=== PATIENT | male | born 1945 | race Caucasian/White ===

== ENCOUNTER 2021-05-21 08:04 | Day surgery (SDC) | payer MEDICARE, SELFPAY ==
[2021-04-25 10:00] VITALS: BMI 29.6
--- NOTE | 2021-04-25 11:55 | RAD_ITS ---
STUDY: X-RAY CHEST REASON FOR EXAM: Male, 75 years old. Abnormal stress test. Dyspnea on exertion. TECHNIQUE: PA and lateral views of the chest. COMPARISON: None. FINDINGS: The lungs are clear and expanded. There is no demonstrated pleural abnormality. Normal size heart. Normal mediastinum and anne marie. Normal visualized pulmonary arteries. There is atherosclerotic calcification of the aortic arch with tortuosity. There are mild degenerative changes of the visualized thoracic spine. Normal visualized ribs, clavicles, and shoulders. There is no demonstrated abnormality of the visualized soft tissue structures of the upper abdomen. RAD/Chest PA and Lateral IMPRESSION: No acute abnormality is seen. Electronically Signed: Clifford Cruz MD at 12:37 EDT , Service support ,
[2021-04-25 14:34] LABS: Absolute Lymphocyte Count 4.64 X10^3/uL (0.83-4.51); Basophil# 0.03 X10^3/uL; Basophil% 0.3 % (0-1); Eosinophil# 0.16 X10^3/uL; Eosinophils% 1.7 % (0-5); Hematocrit 41.5 % (40-54); Hemoglobin 13.5 g/dL (13.0-16.5); Lymphocyte # 4.64 X10^3/ul (0.83-4.51); Lymphocyte % 49.2 % (19-41); Mean Corp Hgb Conc 32.5 g/dL (32-36); Mean Corpuscular Hgb 29.5 pg (27.0-32.0); Mean Corpuscular Volume 90.8 fL (80-94); Mean Platelet Vol. 10.4 fl (6.2-12.0); Monocyte# 0.61 X10^3/uL; Monocyte% 6.5 % (0-10); NRBC Flagged by Analyzer 0 % (0-5); Neutrophil # 3.98 X10^3/uL (2.7-7.7); Neutrophil % 42.1 % (47-70); POSITIVE MORPHOLOGY YES; Platelet Count 182 K/mm3 (150-450); RBC Distribution Width CV 14.3 % (11.6-14.6); RBC Distribution Width SD 47.9 fl (35.1-43.9); Red Blood Count 4.57 M/mm3 (4.6-6.2); White Blood Count 9.4 K/mm3 (4.4-11.0)
[2021-04-25 14:35] LABS: Differential Indicated SCAN CRITERIA MET
[2021-04-25 14:43] LABS: Prothrombin Time (Protime)PT. 12.8 SECONDS (11.7-14.9)
[2021-04-25 14:44] LABS: Partial Thromboplast Time 31.8 Seconds (24.1-36.2)
[2021-04-25 14:50] LABS: Anion Gap 5 (5-15); BUN 18 mg/dL (7-18); BUN/Creat Ratio 18.7 RATIO (10-20); Calcium,Total 9.1 mg/dL (8.5-10.1); Chloride 105 mmol/L (98-107); Creatinine, Serum 0.96 mg/dL (0.70-1.30); EST Glomerular Filtration Rate 81 mL/min (>60); Est Glom Filt Rate - Afr Amer 98 mL/min (>60); Glucose 83 mg/dL (74-106); Potassium 3.9 mmol/L (3.5-5.1); Sodium Level 141 mmol/L (136-145)
[2021-04-25 15:01] LABS: Platelet Estimate ADEQUATE (ADEQ); Red Cell Morphology NORM C+C NORMAL (NORM C&C)
[2021-05-20 10:03] VITALS: BMI 29.5
--- NOTE | 2021-05-20 17:44 | PCM.HP.BLA ---
History and Physical Date of Admission: 05/21/21 [facility] [address] [place], [place] [id number] OFFICE VISITDate of Service: 04/25/21 MR#:[id number]:[id number]: SAMM MITCHELL LRep #:[id number] Provider:Dr. Julian Cruz, CHUYge/Sex: 75/M Location:[facility]:Signed HPI HPI History of Present Illness Surgical H&P: Yes Details: This is a 75-year-old white male who presents for outpatient cardiovascular consultation based upon concerns of shortness of breath/dyspnea on exertion and an abnormal stress nuclear imaging study performed at [facility] in [place], [place]. He states while spending time in [place] he was evaluated by a primary care physician. He was told based upon his knowledge of a cardiac murmur that he should be evaluated by a event representative. He was evaluated by a cardiovascular team which subsequently led, based on concerns of shortness of breath and dyspnea with exertion, to an exercise tolerance test/nuclear imaging study. He was told it was abnormal. He was offered further evaluation with additional noninvasive and invasive studies. He elected to return to [place] for continued evaluation and care. Based upon medical records obtained from the aforementioned healthcare system in [place] there comments that his cardiac work-up demonstrated a transthoracic echocardiogram with normal LV systolic function with an LVEF of 55 to 60% with no significant valvular heart disease reported. He had a pharmacologic stress nuclear imaging study that suggested mild inferolateral ischemia although diaphragmatic attenuation cannot be excluded. He states his medications were adjusted to assist with his hypertension. He notes at home his blood pressure is always better controlled than when he presents to a physician's office. He does state that he can get short of breath and dyspneic with going up an incline or upstairs. However he states he can work outside doing other activities and not necessarily feel the same way. He denies any ongoing chest discomfort with his other symptoms. He has had no issues of orthopnea or PND or peripheral pitting edema. There has been no near syncope or syncope. 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 After rehydrating himself he states he felt much better. He has not had any additional similar type symptoms. He had an ECG in the office today. He was noted to be in sinus bradycardia. He had a leftward axis. He had no acute ECG changes. He did have lipid labs performed on 08-23-2020 by his primary care physician group. According to the report his cholesterol was 171 with an LDL of 103 and an HDL of 53. His triglycerides were 78. Intake Vital Signs 04/25/21 10:00 Height 5 ft 10 in Weight: 206 lb 9 oz BMI 29.6 BP 190/102 H Blood Pressure Location Lt brachial Position Sitting Respiration 18 Pulse 60 Pulse Source Auscultation Intake Visit Reasons: Abn Stress/Self ref. Angular Developer Required: No Accompanied by: Allergies No Known Allergies Allergy (Unverified 04/25/21 10:01) Medications ascorbic acid (vitamin C) 500 mg tablet 500 mg PO DAILY 04/23/21 [History Confirmed 04/25/21] aspirin 81 mg tablet,delayed release 81 mg PO DAILY 04/23/21 [History Confirmed 04/25/21] hydrochlorothiazide 25 mg tablet 25 mg PO DAILY 04/23/21 [History Confirmed 04/25/21] lovastatin 40 mg tablet 40 mg PO QPM 04/23/21 [History Confirmed 04/25/21] rsvphhxa-cjo-spucy acid 400 mcg-coQ10 250 mcg-lycop 375 mcg-lut tablet 1 tab PO DAILY tab 04/23/21 [History Confirmed 04/25/21] olmesartan 40 mg tablet 40 mg PO DAILY 04/23/21 [History Confirmed 04/25/21] sulfacetamide sodium 10 % eye drops 1 drp OPHTHALMIC (EYE) Q3H PRN 04/23/21 [History Confirmed 04/25/21] clopidogrel 75 mg tablet 75 mg PO DAILY #30 tab 04/25/21 [Rx Confirmed 04/25/21] PFSH Medical History (Updated 04/25/21 @ 11:[address] Julian Cruz MD) Cardiac murmur Diverticulosis Essential hypertension Pure hypercholesterolemia Renal cyst Surgical History History of arthroplasty of right knee History of basal cell carcinoma excision History of foot surgery History of hernia repair History of prostate biopsy Family History Mother Hypertension Cardiac murmur Father CVA (cerebral vascular accident) Sister Cardiac murmur Sister Cardiac murmur Social History Smoking Status: Former smoker alcohol intake: current details: Rare substance use type: does not use caffeine: Yes Type: tea Number of servings: 1 ROS Const Const: Negative for fatigue, weakness, frequent falls, excessive sweating, weight gain or weight loss Eyes Eyes: Negative for transient loss of vision, blurry vision or change in vision ENT ENT: Negative for dizziness or balance problems Cardio Chest Pain: No Palpitations: Yes (occasional) feels like its: skipping Edema: None Muscle aches with walking: None Resp Respiratory: Negative for SOB with activity or SOB at rest GI GI: Negative vomiting or vomiting blood/hematemesis : Negative for hematuria Musc Musc: Negative for muscle aches/ myalgia, muscle weakness, joint pain or balance problems Skin Skin: Negative non-healing lesions or rash Neuro Neuro: Negative for dizziness, lightheadedness, orthostatic symptoms, frequent falls, weakness or blurry vision David Hematologic/Lymphatic: Negative for easy bleeding Endo Endo: Negative for fatigue or excessive sweating Psych Psych: Negative for anxiety or depression Allergy Allergy/Immunology: Negative for hives and Negative for rash Cardiology Exam Const Appearance: cooperative, healthy appearing, comfortable, no acute distress, well developed and well groomed Nutritional Appearance: overweight Orientation: alert, awake and oriented x3 Head Head: normal to inspection, normocephalic and atraumatic Ears: hearing grossly normal bilaterally Nose: external nose normal Face and Sinus: face symmetric Eyes Eyelids: eyelids normal Conjunctivae: conjunctivae normal Pupils: PERRL EOM: EOM intact bilaterally Neck Neck: normal visual inspection and full ROM Carotids: normal carotid upstroke Chest Chest inspection: normal inspection of the chest, symmetric chest movement and normal respiratory effort Auscultation: Bilateral: Clear to Auscultation Cardio Palpation: normal PMI Rate: bradycardic Rhythm: regular rhythm Heart sounds: S1 normal, S2 normal and murmur Murmur: Grade 2/6, soft, mid systolic and apex GI GI: normal to inspection, soft and bowel sounds present Neuro General: patient alert, patient awake, patient oriented x3 and moves all extremities Skin Skin: no rashes or lesions noted Extremities Pulses: Normal: Right Radial Pulse and Left Radial Pulse Lower Extremity Edema: None: Bilateral Psych Psychological: normal affect Assessment and Plan Assessment and Plan (1) Dyspnea: Status: Acute Qualifiers: Dyspnea type: dyspnea on exertion Qualified Code(s): R06.00 - Dyspnea, unspecified Orders: Orders: Left Heart Cath/COR/LV Percut Today Basic Metabolic Profile (BMP) Today Partial Thromboplast Time Today Prothrombin Time w/INR Today CBC W/Diff, Automated Today Chest PA and Lateral Today Plan - Dr. Julian Cruz MD: He does have dyspnea on exertion. He appears to somewhat downplay it . He is undergone evaluation as noted above. This is led to findings of an abnormal pharmacologic stress nuclear imaging study requiring further clarification as to whether or not he truly has underlying CAD or whether its a false positive study. At the present time his case was discussed with him. Additional noninvasive and invasive valuation was discussed with respect to cardiac CTA versus cardiac catheterization. The procedure and risks were discussed with him. Status post a discussion both he and his opted to proceed with further definitive evaluation with diagnostic cardiac catheterization. (2) Abnormal stress test: Status: Acute Orders: Orders: 12 Lead EKG performed by BMS Today Left Heart Cath/COR/LV Percut Today Basic Metabolic Profile (BMP) Today Partial Thromboplast Time Today Prothrombin Time w/INR Today CBC W/Diff, Automated Today Chest PA and Lateral Today Plan - Dr. Julian Cruz MD: His stress test is as noted above. Again a discussion was held with him with respect to additional evaluation and care. At the present time he will continue medical management and proceed with additional evaluation as noted. (3) Pure hypercholesterolemia: Status: Acute Orders: Orders: 12 Lead EKG performed by BMS Today Left Heart Cath/COR/LV Percut Today Basic Metabolic Profile (BMP) Today Partial Thromboplast Time Today Prothrombin Time w/INR Today CBC W/Diff, Automated Today Chest PA and Lateral Today Plan - Dr. Julian Cruz MD: He will continue lipid-lowering therapy. (4) Essential hypertension: Status: Acute Orders: Orders: 12 Lead EKG performed by BMS Today Left Heart Cath/COR/LV Percut Today Basic Metabolic Profile (BMP) Today Partial Thromboplast Time Today Prothrombin Time w/INR Today CBC W/Diff, Automated Today Chest PA and Lateral Today Plan - Dr. Julian Cruz MD: He was asked to monitor his blood pressure at home and report his blood pressure recordings to the office. Depending upon his home blood pressure readings he may or may not need further adjustment of his antihypertensive regimen. (5) Cardiac murmur: Status: Acute Plan - Dr. Julian Cruz MD: He does have a cardiac murmur. His echocardiogram performed in [place] did not suggest any hemodynamically significant valvular heart disease. Plan Details Other Medications: New: clopidogrel (Plavix) 75 mg PO DAILY 30 tabs 1RF Additional Comments: Thank you for allowing me to participate in the care of your patient. Please don't hesitate to call if any issues arise. This note was generated using a voice recognition system and there may be incorrect words, spelling or punctuation that were not noted when reviewing the office note prior to saving. Follow Up: 3 Months (with PFM) COVID (Procedure Consent) Procedure Criteria Procedure Criteria: Yes Elective The surgeon/proceduralist and patient have discussed in detail the risk of exposure to and/or potential harm posed by the COVID-19 virus with having a surgery/procedure at this time versus the risk of delaying the surgery/procedure. It is not possible to know either the risk of delaying the surgery or procedure or chance of getting an infection with perfect accuracy, but a joint decision was made between the patient and the surgeon/proceduralist to proceed at this time with the scheduled surgery/procedure as indicated on the consent form. Coding Level of Care Code Off vis,new,level 5 Diagnoses Dyspnea R06.00 Dyspnea type: dyspnea on exertion Abnormal stress test R94.39 Pure hypercholesterolemia E78.00 Essential hypertension I10 Cardiac murmur R01.1 Coding Level of Care Code Off vis,new,level 5 Diagnoses Dyspnea R06.00 Dyspnea type: dyspnea on exertion Abnormal stress test R94.39 Pure hypercholesterolemia E78.00 Essential hypertension I10 Cardiac murmur R01.1 Supplemental Info Supplemental Information Labs: No Data to Display Diagnostics: Electrocardiogram Pulmonary: No Data to Display 04/25/21 1113<Electronically signed by Julian Cruz MD>Date Julian Cruz MD Cosigner Signature:Date (if applicable) CC: ~ I have re-examined the patient. There are no clinical changes since date of exam.
[2021-05-21] VITALS (15 sets, daily range): BP systolic 137–168; BP diastolic 72–89; PULSE 49–68; RESP 12–16; TEMP 36.7–37; O2SAT 93–96
--- NOTE | 2021-05-21 10:30 | EKG12_ITS ---
Test Reason : AM EKG Blood Pressure : / mmHG Vent. Rate : 067 BPM Atrial Rate : 067 BPM P-R Int : 174 ms QRS Dur : 088 ms QT Int : 426 ms P-R-T Axes : 038 -29 019 degrees QTc Int : 450 ms Normal sinus rhythm Normal ECG When compared with ECG of 21-MAY-2021 11:40, MANUAL COMPARISON REQUIRED, DATA IS UNCONFIRMED Confirmed by YG NANCE, LEONEL ([id number]), state editor SHAINA HUMPHREY ([id number]) on 05/22/2021 1:27:48 PM Referred By: Julian Cruz Confirmed By:LEONEL RONQUILLO MD
[2021-05-21] MEDS: 0.9% Normal Saline 1,000 ML 70 ML IV (11:08)
--- NOTE | 2021-05-21 11:09 | CL.D_ITS ---
Patient Name: SAMM MITCHELL Study Date: 05/21/2021 Performing: Julian Cruz MD Ht: 70 inches 178 cm : 1945 Wt: 205.3 lbs 93 kg Age: 75 Gender: male BSA: 2.11 PROCEDURE(S) PERFORMED CE13-WEI/COR/LV [id number] W OR WO PTCA, SINGLE CORONARY ARTERY CLINICAL PROFILE AND INDICATIONS Indications: Suspected CAD Heart Failure: None Stress/Imaging Date: 01/02/2021tress Test with SPECT MPI: Positive Intermediate Risk Angina Classification Anginal Classification w/in 2 Weeks: CCS III CAD Presentations: Stable angina. CONCLUSIONS Elevated Left Ventricular End Diastolic Pressure Normal LV size, wall motion,and systolic function LVEF: by LV gram 55 % [place] Multivessel CAD RECOMMENDATIONS Risk factor modification Medical therapy Referred for immediate PCI DESCRIPTION OF PROCEDURE The patient arrived to the procedure lab. The risks and benefits of the procedure as well as a full d escription of our services here and current unavailability of surgical backup were fully explained to the patient and/or their significant other prior to the catheterization. The Timeout was completed, verifying the correct patient and procedure. The patient's procedural site was prepped and draped in the usual fashion. Local anesthetic was given subcutaneously to right radial region with Lidocaine 2% . Using a modified Seldinger technique, arterial access was obtained via the right radial artery, a 6 Fr sheath was inserted. Right Coronary Artery selective angiography was then performed in multiple v iews using a 5 Fr. 4.0 [place] catheter. Left Coronary Artery selective angiography was performed in mu ltiple views using a 5 Fr. 4.0 [place] catheter. Left Ventriculography was performed in MYERS projection using a 5 Fr. Pigtail catheter. LV to AO pullback pressures were then recorded.The arterial sheath was pulled and a TR Band was applied for hemostasis CORONARY ANGIOGRAPHY DOMINANCE: Co- Dominant LEFT HEART ASSESSMENT Left Ventricular Ejection Fraction: by LV Gram 55 % Normal LV wall motion Elevated Left Ventricular End Diastolic Pressure LVEDP: 20 mmHg LEFT MAIN: Angiographically normal LEFT ANTERIOR DESCENDING ARTERY: Mild luminal irregularities PROX LAD: Mild calcification CIRCUMFLEX ARTERY: Mild luminal irregularities MID CIRC: 90 % Stenosis RAMUS: Mild luminal irregularities RIGHT CORONARY ARTERY: Mild luminal irregularities AORTIC ROOT: Angiographically normal COMPLICATIONS No Complications PROCEDURE MEDICATIONS Fentanyl 50 mcg IV Versed 1 mg IV Oxygen: 2 L/min via nasal cannula Heparin given IA 05/21/2021 09:39:03 Heparin 6000 unit(s) IV 05/21/2021 09:56:52 Verapamil 2.5mg, Ntg 100mcgs, 3000 units of Heparin given IA 05/21/2021 09:39:03 SUMMARY OF HEMODYNAMIC DATA Time AIR REST ECG 08:30:29 ECG 09:19:21 AO 151/80 (109) SA 09:42:29 LV 164/-10, 09:50:03 LV 162/-13, 20 09:50:09 LV 161/-12, 09:51:05 LVp 160/-14, 20 09:51:11 AOp 156/66 (101) 09:51:16 AO 157/67 (103) 09:51:17 Signed By Julian Cruz MD On 06/18/2021 12:29:01 PM Julian Cruz MD
--- NOTE | 2021-05-21 12:12 | CL.I_ITS ---
Patient Name: SAMM MITCHELL Study Date: 05/21/2021 Performing: Toy Miller MD Ht: 70.08 inches 178 cm : 1945 Wt: 205.03 lbs 93 kg Age: 75 Gender: male BSA: 2.11 PROCEDURE(S) PERFORMED [id number] W OR WO PTCA, SINGLE CORONARY ARTERY CLINICAL PROFILE AND CO-MORBIDITIES Indications: Suspected CAD Heart Failure: None Stress/Imaging Date: 01/02/2021 Stress Test with SPECT MPI: Positive Intermediate Risk Angina Classification Anginal Classification w/in 2 Weeks: CCS III CAD Presentations: Stable angina. CONCLUSIONS Successful EBONY to mLCX RECOMMENDATIONS DESCRIPTION OF PROCEDURE The patient arrived to the procedure lab. The risks and benefits of the procedure as well as a full d escription of our services here and current unavailability of surgical backup were fully explained to the patient and/or their significant other prior to the catheterization. The Timeout was completed, verifying the correct patient and procedure. The patient's procedural site was prepped and draped in the usual fashion. Local anesthetic was given subcutaneously to right radial region with Lidocaine 2% Using a modified Seldinger technique,arterial access was obtained via the right radial artery, a 6Fr sheath was inserted. Right Coronary Artery selective angiography was then performed in multiple view s using a 5 Fr. 4.0 [place] catheter. Left Coronary Artery selective angiography was performed in multi ple views using a 5 Fr. 4.0 [place] catheter. Left Ventriculography was performed in MYERS projection usi ng a 5 Fr. Pigtail catheter. LV to AO pullback pressures were then recorded.The images were reviewed and options discussed. A decision was then made to proceed with an Intervention, IVUS o r other adjunct procedure. XB 3.0 Guide catheter was inserted and engaged into the LCA. Angiogram performed pre balloon dila tation. BMW Guide wire was advanced to the Circumflex. 2.5 x 8 Emerge Balloon catheter was advanced a cross lesion in the circumflex, mid. PTCA balloon inflated at 6 atms for 9 secs. PTCA balloon inflate d at 8 atms for 15 secs. 3.0 x 9 Orsiro Drug Eluting stent was advanced across the lesion in the circ umflex, mid. 3.0 x 8 NC Emerge Balloon catheter was inserted post stent. Angiogram performed post harjeet nt deployment. The arterial sheath was pulled and a TR Band was applied for hemostasis INTERVENTION INFORMATION LESION SITE: Circumflex (Mid) Lesion Complexity: High/C, chronic total occlusion: No, lesion at bifurcation: Yes, thrombus present: No, lesion length: 8 mm, culprit lesion: Yes, Previously treated lesion: No Pre Stenosis: 90 % Pre intervention MERE flow: 3 PROCEDURE: Drug Eluting Stent with pre and post dilatation Post Stenosis: 0 % Post intervention MERE flow: 3 Lesion Devices: [place] .014 BMW [place] Straight 190cm Cardinal 6 Fr XB3.0 100cm Guide Catheter Scotty Sci EMERGE MR 2.50x08 BALLOON Scotty Sci NC EMERGE MR 3.00x08 BALLOON COMPLICATIONS No Complications PROCEDURE MEDICATIONS Fentanyl 50 mcg IV Versed 1 mg IV Oxygen: 2 L/min via nasal cannula Heparin given IA 05/21/2021 09:39:03 Heparin 6000 unit(s) IV 05/21/2021 09:56:52 Verapamil 2.5mg, Ntg 100mcgs, 3000 units of Heparin given IA 05/21/2021 09:39:03 SUMMARY OF HEMODYNAMIC DATA Time AIR REST ECG 08:30:29 ECG 09:19:21 AO 151/80 (109) SA 09:42:29 LV 164/-10, 21 09:50:03 LV 162/-13, 20 09:50:09 LV 161/-12, 21 09:51:05 LVp 160/-14, 20 09:51:11 AOp 156/66 (101) 09:51:16 AO 157/67 (103) 09:51:17 Signed By Toy Miller MD On 05/21/2021 12:11:23 Toy Miller MD
--- NOTE | 2021-05-21 15:01 | CRPHASE1 ---
Patient Communication PHII Cardiac Rehab Discussed with Patient:: Yes Guide to Cardiac Rehab Given to Patient:: Yes Cardiac Rehab Facility Choice List Given to Patient:: Yes Choice Program [facility] CR PHII:: Communication Given to CR Choice Program Other:: Communication Given to CR Employer Relations Representative:: Jose Miller Refer Phase II Cardiac Rehab:: Yes Sessions:: 36 sessions - 3 days/wk, 12 weeks Cardiac Rehabilitation Info Cardiac Rehabilitation Program Information: Cardiac Rehabilitation is important for patients like you who are recovering from a heart problem. Cardiac rehabilitation programs are recognized as integral to the continued care of the patient with coronary heart disease. The cardiac rehabilitation program is designed to optimize a patient's physical, psychological, and social functioning. Health critical care nurse work in cardiac rehabilitation programs and assist you with getting the treatments you need to get stronger and healthier - like exercise, healthy eating habits, and medications. Cardiac rehabilitation has been show to help people with heart problems live longer and have better life enjoyment than people who do not go to cardiac rehabilitation. Please contact the Cardiac Rehabilitation Program at [facility] at in two weeks if you have not heard from them.
--- NOTE | 2021-05-21 15:02 | CRPH1.INSTRU ---
General Education CAD and cardiac anatomy and function:: Patient communicates acknowledgment Explanation of diagnoses and procedures:: Patient communicates acknowledgment Sign/Symptoms of ME:: Patient communicates acknowledgment Antiplatelet therapy: Patient communicates acknowledgment Smoking Recommendations Include:: Previous smoker; encourage continued cessation Nicotine/Smoking Response Code:: Patient communicates acknowledgment Dyslipidemia Patient Dyslipidemia Risk Factors Are:: Total Cholesterol, Triglycerides, HDL, LDL Recommendations Include:: Lipid profile not available, Reviewed NCEP/ATP guidelines, Therapeutic Lifestyle Change dietary guidelines Dyslipidemia Response Code:: Patient communicates acknowledgment Overweight/Obesity Patient Overweight/Obesity Risk Factors Are:: BMI Normal [24-29 & > 65 years old] Recommendations Include:: Weight loss of 5-10%, Reduced calorie diet, Exercise 5-7 times/week Overweight/Obesity:: Patient communicates acknowledgment Hypertension Recommendations Include:: Maintain BP <130/85, DASH dietary guidelines, Decrease/maintain normal body weight, Moderation of ETOH Hypertension:: Patient communicates acknowledgment Diabetes Patient Diabetes Risk Factors Are:: No documented hx of diabetes Recommendations Include:: Decrease/maintain body weight Diabetes:: Patient communicates acknowledgment Metabolic Syndrome Patient Metabolic Syndrome Risk Factors Are [3 of 5]:: Waist circumference > 35 [female] or 40 [male], Hypertension Recommendations Include:: Reinforce compliance to risk factor modifications Metabolic Syndrome Response Code:: Patient communicates acknowledgment Sedentary Patient Sedentary Risk Factors Are:: Lack of regular exercise Recommendations Include:: Aerobic exercise 5-7 times/week for 20-30 minutes continuously, Benefits of regular exercise, Discussed home walking program, Monitored Outpatient Cardiac Rehab Sedentary Response Code:: Patient communicates acknowledgment Stress Recommendations Include:: Identification of stressors, and assessment of coping skills, Stress management techniques Stress Response Code:: Patient communicates acknowledgment
[2021-05-21] MEDS: predniSONE 20 MG Tablet 60 MG PO (18:23)
[2021-05-21] MEDS: Atorvastatin Calcium 10 MG Tablet PO (21:56)
[2021-05-22] MEDS: 0.9% Normal Saline 1,000 ML 70 ML IV (00:51)
[2021-05-22 03:00] VITALS: PULSE 68
[2021-05-22 03:50] VITALS: BP 133/66; PULSE 72; RESP 14; TEMP 36.9; O2SAT 94
[2021-05-22 07:02] LABS: Hemoglobin 13.2 g/dL (13.0-16.5); Mean Corpuscular Hgb 29.6 pg (27.0-32.0); Mean Corpuscular Volume 89.7 fL (80-94); Mean Platelet Vol. 9.8 fl (6.2-12.0); Platelet Count 155 K/mm3 (150-450); RBC Distribution Width CV 13.5 % (11.6-14.6); RBC Distribution Width SD 44.5 fl (35.1-43.9); Red Blood Count 4.46 M/mm3 (4.6-6.2); White Blood Count 10.7 K/mm3 (4.4-11.0)
[2021-05-22 07:34] LABS: AST(SGOT) 20 U/L (15-37); Alanine Aminotransfer ALT/SGPT 22 U/L (16-61); Albumin, Serum 3.4 g/dL (3.2-5.0); Alkaline Phosphatase 52 U/L (45-117); Anion Gap 5 (5-15); BUN 24 mg/dL (7-18); BUN/Creat Ratio 23.3 RATIO (10-20); Calcium,Total 8.2 mg/dL (8.5-10.1); Chloride 109 mmol/L (98-107); Creatinine, Serum 1.03 mg/dL (0.70-1.30); EST Glomerular Filtration Rate 75 mL/min (>60); Est Glom Filt Rate - Afr Amer 90 mL/min (>60); Globulin 3.3 g/dL (2.2-4.2); Glucose 147 mg/dL (74-106); Potassium 3.7 mmol/L (3.5-5.1); Protein, Total 6.7 g/dL (6.4-8.2); Sodium Level 139 mmol/L (136-145)
[2021-05-22 07:53] VITALS: PULSE 66
[2021-05-22 08:01] VITALS: O2SAT 94
--- NOTE | 2021-05-22 08:23 | PCM.DC ---
Discharge Instructions Diet Discharge Diet: Low fat / Low cholesterol Activity Discharge Activity: May Not Drive (x 48 hours), May Shower (Today) and May Take a Tub Bath (in 7 days) May resume sexual activity in: 1-2 weeks Weight Bearing Status: - (avoid heavy exertional activity until 05/28/2021) Dressing / Incision Call your doctor if your incision/area has: Continuous Slow Oozing, Sudden Increased Bleeding, Increased Pain/ Swelling, Increased Redness, Foul Smelling Discharge and Swelling at the incision site Call your doctor if you observe: Fever of 101 or Higher, Shortness of breath, Dizziness, Fainting spells, Swelling in the ankles, Chest pain, Increased palpitations (irregular heartbeat) and Uncontrolled pain Remove Dressing in: 1 day Cleanse incision/area with: Soap & Water Follow Up Care Please Follow Up With: Nancy When: 06/06/2021: 3:30 PM Test Results: Test results from this visit will be discussed in further detail at your follow-up appointment, if applicable. Discharge Plan Admission Primary Reason for Your Visit: Abnormal Stress Test: Cardiac Catheterization Attending Provider: Julian Cruz Primary Care Provider: Care Physician,No Primary Instructions Patient Instructions: ED Heart Disease Risk Factors Discharge Orders/Prescriptions Prescriptions: Continued clopidogrel [Plavix] 75 mg tablet 75 mg PO DAILY Qty: 30 RF: 1 olmesartan 40 mg tablet 40 mg PO DAILY RF: 0 lovastatin 40 mg tablet 40 mg PO QPM RF: 0 hydrochlorothiazide 25 mg tablet 25 mg PO DAILY RF: 0 aspirin [Enteric Coated Aspirin] 81 mg tablet,delayed release (DR/EC) 81 mg PO DAILY RF: 0 sulfacetamide sodium 10 % drops 1 drp ophthalmic (eye) Q3H PRN (Reason: Ocular Congestion) RF: 0 ascorbic acid (vitamin C) 500 mg tablet 500 mg PO DAILY RF: 0 Theragran-M Premier 50 Plus 400-250-375 mcg tablet 1 tab PO DAILY RF: 0 Referrals / Follow Up: Julian Cruz MD [STAFF PHYSICIAN] - 06/06/21 3:30 pm Care Physician,No Primary [Primary Care Provider] - Disposition Disposition (needs filled in before D/C Order can be placed): Home, Self Care
--- NOTE | 2021-05-22 08:31 | DS.PCM_ITS ---
Providers Date of Admission: 05/21/21 Date of Discharge: 05/22/21 Primary Care Physician: No Primary Care Phys Reason For Visit: ABN STRESS,GUERRA,HTN Diagnosis Discharge Diagnosis (1) Atherosclerotic heart disease of [place] coronary artery without angina pectoris: Status: Acute Code(s): I25.10 - Atherosclerotic heart disease of [place] coronary artery without angina pectoris (2) Presence of stent in coronary artery: Status: Acute Code(s): Z95.5 - Presence of coronary angioplasty implant and graft (3) Pure hypercholesterolemia: Status: Acute Code(s): E78.00 - Pure hypercholesterolemia, unspecified (4) Essential hypertension: Status: Acute Code(s): I10 - Essential (primary) hypertension Medications at Discharge Home Medications ascorbic acid (vitamin C) 500 mg tablet 500 mg PO DAILY 04/23/21 aspirin 81 mg tablet,delayed release 81 mg PO DAILY 04/23/21 hydrochlorothiazide 25 mg tablet 25 mg PO DAILY 04/23/21 lovastatin 40 mg tablet 40 mg PO QPM 04/23/21 kicjvrwv-wan-lrbtk acid 400 mcg-coQ10 250 mcg-lycop 375 mcg-lut tablet 1 tab PO DAILY tab 04/23/21 olmesartan 40 mg tablet 40 mg PO DAILY 04/23/21 sulfacetamide sodium 10 % eye drops 1 drp OPHTHALMIC (EYE) Q3H PRN 04/23/21 clopidogrel 75 mg tablet 75 mg PO DAILY #30 tab 04/25/21 Hospital Course Procedures Cardiac catheterization and - (Cardiac Intervention: PCI) Summary of Care Provided Minutes Spent on Discharge: 45 Hospital Course: The patient that the [facility] based upon an abnormal stress test performed at an outside institution for further evaluation with diagnostic cardiac catheterization. The patient underwent diagnostic cardiac catheterization and was found to have angiographically significant LCx disease. He subsequently underwent PTCA/EBONY to the LCx. He was monitored overnight. He remains symptomatically and hemodynamically stable. He had no acute objective findings. On this day he was felt stable for release home for continued outpatient cardiovascular follow-up and outpatient cardiac rehabilitation. Physical Exam Const alert, oriented x3 and no apparent distress General Appearance: cooperative, comfortable, well kempt and well developed HEENT normocephalic, head/scalp atraumatic and hearing grossly normal bilaterally Eyes PERRL, EOMs intact bilaterally, conjunctivae normal and no scleral icterus Neck full ROM Chest inspection of chest normal Chest: symmetrical chest wall rise Resp normal respiratory effort and normal air movement Auscultation: clear to auscultation bilaterally Cardio regular rate, regular rhythm, S1 normal heart sound and S2 normal heart sound Peripheral Pulses: radial pulses present right 2+ GI normal to inspection, nondistended, normoactive bowel sounds Extremity no pedal edema Skin no rashes or lesions noted Neuro oriented x3, moves all extremities, no focal motor deficits and no sensory deficits noted Psych mental status grossly normal Weight / BMI Weight Weight: 206 lb Body Mass Index (BMI) 29.5 ABG / Lab / Microbiology Data Result Diagrams: 05/22/21 06:45 05/22/21 06:45 Laboratory: Laboratory Results - last 24 hr 05/22/21 05/22/21 06:45 06:45 WBC 10.7 RBC 4.46 L Hgb 13.2 Hct 40.0 MCV 89.7 MCH 29.6 MCHC 33.0 RDW Std Deviation 44.5 H RDW Coeff of Freddie 13.5 Plt Count 155 MPV 9.8 Sodium 139 Potassium 3.7 Chloride 109 H Carbon Dioxide 25.0 Anion Gap 5 BUN 24 H Creatinine 1.03 Estim Creat Clear Calc 63.00 Est GFR (MDRD) Af Amer 90 Est GFR (MDRD) Non-Af 75 BUN/Creatinine Ratio 23.3 H Glucose 147 H Calcium 8.2 L Total Bilirubin 0.60 AST 20 ALT 22 Alkaline Phosphatase 52 Total Protein 6.7 Albumin 3.4 Globulin 3.3 Albumin/Globulin Ratio 1.0 D/C Instructions Discharge Diet: Low fat / Low cholesterol May resume sexual activity in: 1-2 weeks Weight Bearing Status: - (avoid heavy exertional activity until 05/28/2021) Call your doctor if your incision/area has: Continuous Slow Oozing, Sudden Increased Bleeding, Increased Pain/ Swelling, Increased Redness, Foul Smelling Discharge and Swelling at the incision site Call your doctor if you observe: Fever of 101 or Higher, Shortness of breath, Dizziness, Fainting spells, Swelling in the ankles, Chest pain, Increased palpitations (irregular heartbeat) and Uncontrolled pain Cleanse incision/area with: Soap & Water Please Follow Up With: Nancy When: 06/06/2021: 3:30 PM Meaningful Use Info Meaningful Use Diagnoses (Choose all that apply): None applicable Discharge Plan Admission Primary Reason for Your Visit: Abnormal Stress Test: Cardiac Catheterization Attending Provider: Julian Cruz Primary Care Provider: Care Physician,No Primary Instructions Patient Instructions: ED Heart Disease Risk Factors Discharge Orders/Prescriptions Prescriptions: Continued clopidogrel [Plavix] 75 mg tablet 75 mg PO DAILY Qty: 30 RF: 1 olmesartan 40 mg tablet 40 mg PO DAILY RF: 0 lovastatin 40 mg tablet 40 mg PO QPM RF: 0 hydrochlorothiazide 25 mg tablet 25 mg PO DAILY RF: 0 aspirin [Enteric Coated Aspirin] 81 mg tablet,delayed release (DR/EC) 81 mg PO DAILY RF: 0 sulfacetamide sodium 10 % drops 1 drp ophthalmic (eye) Q3H PRN (Reason: Ocular Congestion) RF: 0 ascorbic acid (vitamin C) 500 mg tablet 500 mg PO DAILY RF: 0 Theragran-M Premier 50 Plus 400-250-375 mcg tablet 1 tab PO DAILY RF: 0 Referrals / Follow Up: Julian Cruz MD [STAFF PHYSICIAN] - 06/06/21 3:30 pm Care Physician,No Primary [Primary Care Provider] - Disposition Disposition (needs filled in before D/C Order can be placed): Home, Self Care
--- NOTE | 2021-05-22 10:00 | EKG12_ITS ---
Test Reason : S/P PCI Blood Pressure : / mmHG Vent. Rate : 050 BPM Atrial Rate : 050 BPM P-R Int : 180 ms QRS Dur : 092 ms QT Int : 462 ms P-R-T Axes : 037 -23 008 degrees QTc Int : 421 ms Sinus bradycardia Otherwise normal ECG Confirmed by TANK NANCE, JULIAN ([id number]), desk editor SHAINA HUMPHREY ([id number]) on 05/23/2021 8:32:13 AM Referred By: Julian Fu Confirmed By:JULIAN FU MD
[2021-05-22 10:12] VITALS: BP 135/72; PULSE 72; RESP 16; TEMP 37; O2SAT 94
[2021-05-22] MEDS: Aspirin E.C. 81 MG Tablet PO (10:14)
[2021-05-22] MEDS: Clopidogrel Bisulfate 75 MG Tablet PO (10:14)
[2021-05-22] MEDS: Ascorbic Acid 500 MG Tablet PO (10:14)
[2021-05-22] MEDS: hydroCHLOROthiazide 25 MG Tablet PO (10:14)
[2021-05-22] MEDS: Losartan Potassium 100 MG Tablet PO (10:14)
--- NOTE | 2021-05-22 11:06 | PHA.DC.MR ---
Pharmacy Service has performed discharge medication reconciliation for this patient. The patient's discharge medication list was reviewed for discrepancies and discrepancies were resolved. Home Medications ascorbic acid (vitamin C) 500 mg tablet 500 mg PO DAILY 04/23/21 aspirin 81 mg tablet,delayed release 81 mg PO DAILY 04/23/21 hydrochlorothiazide 25 mg tablet 25 mg PO DAILY 04/23/21 lovastatin 40 mg tablet 40 mg PO QPM 04/23/21 rvomakhe-abm-nglav acid 400 mcg-coQ10 250 mcg-lycop 375 mcg-lut tablet 1 tab PO DAILY tab 04/23/21 olmesartan 40 mg tablet 40 mg PO DAILY 04/23/21 sulfacetamide sodium 10 % eye drops 1 drp OPHTHALMIC (EYE) Q3H PRN 04/23/21 clopidogrel 75 mg tablet 75 mg PO DAILY #30 tab 04/25/21
== END 2021-05-22 08:29 | disposition home or self-care (01) ==
LOC: CLSP 08:11 → PCU 13:28
PROVIDERS: Specialist; Referring Provider Internal Medicine Cardiovascular Disease; Visit Provider Internal Medicine Cardiovascular Disease
DX: I25.118 Atherosclerotic heart disease of native coronary artery with other forms of angina pectoris (principal); E78.00 Pure hypercholesterolemia, unspecified; I10 Essential (primary) hypertension; R06.02 Shortness of breath; Z79.02 Long term (current) use of antithrombotics/antiplatelets; Z79.82 Long term (current) use of aspirin; Z87.891 Personal history of nicotine dependence; Z79.899 Other long term (current) drug therapy; Z68.29 Body mass index [BMI] 29.0-29.9, adult
CPT/HCPCS: 36415; 71046; 80048; 80053; 85025; 85027; 85610; 85730; 92928; 93005; 93458; 99152; 99153; J7030; J7040; C1725; C1769; C1874; C1887; C1894; C9600; Q9967

== ENCOUNTER → 2022-05-01 | Outpatient (CLI) | payer MEDICARE, SELFPAY ==
[2022-05-01 12:19] LABS: AST(SGOT) 12 U/L (15-37); Alanine Aminotransfer ALT/SGPT 25 U/L (16-61); Albumin, Serum 4.1 g/dL (3.2-5.0); Alkaline Phosphatase 52 U/L (45-117); Bilirubin, Direct 0.17 mg/dL (0.00-0.30); Cholesterol 150 mg/dL (200); Globulin 3.6 g/dL (2.2-4.2); High Density Lipoprotein 54 mg/dL; Protein, Total 7.7 g/dL (6.4-8.2); Triglycerides 82 mg/dL; Very Low Density Lipoprotein 16 mg/dL (5-40)
== END | disposition home or self-care (01) ==
LOC: LAB 10:45
PROVIDERS: Referring Provider Internal Medicine Cardiovascular Disease; Visit Provider Internal Medicine Cardiovascular Disease
DX: E78.00 Pure hypercholesterolemia, unspecified (principal)
CPT/HCPCS: 36415; 80061; 80076

== ENCOUNTER → 2023-07-22 | Outpatient (CLI) | payer MEDICARE, SELFPAY ==
--- NOTE | 2023-07-22 08:54 | CDU_ITS ---
Reason For Study: Dizziness Rt. Velocities/BP Lt. Velocities/BP Prox CCA 68.3/16.3 cm/sec. Prox CCA 108.3/15.2 cm/sec. Mid CCA 63.6/17.3 cm/sec. Mid CCA 79.1/18.8 cm/sec. Dist CCA 69.2/18.2 cm/sec. Dist CCA 66.7/15.1 cm/sec. Prox ICA 84.4/23 cm/sec. Prox ICA 65.4/20 cm/sec. Mid ICA 100.4/30.5 cm/sec. Mid ICA 81.4/26.2 cm/sec. Dist ICA 71.1/24.8 cm/sec. Dist ICA 81.4/29.8 cm/sec. Rt. ICA/CCA = 1.45. Lt. ICA/CCA = 1.03. Prox ECA 54.1/6 cm/sec. Prox ECA 94.9/11.4 cm/sec. Rt. Vert. 45.6/14.5 cm/sec. Lt. Vert. 55.6/16.3 cm/sec. Right Extracranial There is homogeneous, smooth atherosclerotic plaque noted in the right common carotid artery. There is homogeneous, smooth atherosclerotic plaque noted in the right internal carotid artery. There is homogeneous, smooth atherosclerotic plaque noted in the right external carotid artery. Antegrade flow is noted in the right vertebral artery. Left Extracranial There is homogeneous, smooth atherosclerotic plaque noted in the left common carotid artery. There is heterogeneous, irregular atherosclerotic plaque noted in the left internal carotid artery. There is intimal thickening but no significant atherosclerotic plaque noted in the left external carotid artery. Antegrade flow is noted in the left vertebral artery. Procedure Carotid Duplex 30565. This is a Carotid Duplex examination using B-mode, color flow and specral Doppler. Exam performed in department. VL/Carotid Duplex Ultrasound Interpretation Summary Mild (<50%) stenosis right extracranial internal carotid. Mild (<50%) stenosis left extracranial internal carotid. Patent and antegrade vertebrals bilaterally. Ordering Physician: Justin Somers Performed By: Magda Carpenter RVT
== END | disposition home or self-care (01) ==
LOC: CVS 08:53
PROVIDERS: Referring Provider Nurse Practitioner Family; Visit Provider Nurse Practitioner Family
DX: I65.22 Occlusion and stenosis of left carotid artery (principal); R42 Dizziness and giddiness
CPT/HCPCS: 93880

== ENCOUNTER → 2025-08-08 | Outpatient (CLI) | payer MEDICARE, SELFPAY ==
--- NOTE | 2025-08-08 08:09 | ECHOD_ITS ---
Reason For Study Reason For Study: MURMUR Procedure This was a 2D Doppler, Color Flow transthoracic echocardiogram. Exam performed in department. Left Ventricle Normal LV size. Mild concentric left ventricular hypertrophy. Left ventricular systolic function is normal. The left ventricular ejection fraction is 65 %. Stage 1 diastolic dysfunction. No regional wall motion abnormalities noted. Right Ventricle Normal RV size. Normal systolic function. Atria The left and right atria are normal. Prominent eustachian valve. Mitral Valve Mild mitral annular calcification. Trivial mitral valve insufficiency. Tricuspid Valve Normal tricuspid valve. Trivial tricuspid valve insufficiency. Pulmonary artery systolic pressure is 26 mmHg. Aortic Valve Trisinus/trileaflet aortic valve. Moderate diffuse aortic valve thickening. Mild aortic stenosis. Peak aortic valve gradient 26 mmHg. Mean aortic valve gradient 14 mmHg. Pulmonic Valve Normal pulmonic valve. Trivial pulmonic valve insufficiency. Great Vessels Normal sized aortic root. Pericardium/Pleural No pericardial effusion. MMode/2D Measurements & Calculations LVIDd: 4.3 cm IVSd: 1.1 cm LVOT diam: 2.0 cm LVIDs: 2.5 cm LVPWd: 1.1 cm LVOT area: 3.1 cm2 RVDd: 3.8 cm FS: 41.1 % asc Aorta Diam: 3.6 cm LAV(MOD-bp): 38.8 ml LVAd ap4: 26.1 cm2 LAV(MOD-bp) Indexed: 19.0 ml/m2 LVLd ap4: 8.3 cm LAV(MOD-sp2): 40.1 ml EDV(MOD-sp4): 66.2 ml LAV(MOD-sp4): 37.9 ml EDV(sp4-el): 69.9 ml LVAs ap4: 12.6 cm2 LVLs ap4: 6.6 cm ESV(MOD-sp4): 20.9 ml ESV(sp4-el): 20.3 ml EF(MOD-sp4): 68.4 % EF(sp4-el): 70.9 % LVAd ap2: 31.5 cm2 SV(MOD-sp4): 45.3 ml SV(MOD-sp2): 63.0 ml LVLd ap2: 8.6 cm SI(MOD-sp4): 22.2 ml/m2 SI(MOD-sp2): 30.8 ml/m2 EDV(MOD-sp2): 94.2 ml EDV(sp2-el): 98.0 ml LVAs ap2: 16.4 cm2 LVLs ap2: 7.1 cm ESV(MOD-sp2): 31.2 ml ESV(sp2-el): 32.0 ml EF(MOD-sp2): 66.9 % SV(sp4-el): 49.6 ml Ao sinus diam: 3.[address] Junction: 2.8 cm LA dimension(2D): 3.6 cm LA A4 area: 15.7 cm2 RA A4 area: 13.9 cm2 TAPSE: 2.3 cm Time Measurements MV dec time: 0.19 sec Doppler Measurements & Calculations MV E max gustavo: 90.9 cm/sec Lat Peak E' Gustavo: 12.4 cm/sec Med Peak E' Gustavo: 9.7 cm/sec MV A max gustavo: 101.6 cm/sec E/E' lat: 7.4 E/E' med: 9.4 MV E/A: 0.90 MV dec slope: 481.0 cm/sec2 Ao V2 max: 255.1 cm/sec LV V1 max: 123.0 cm/sec Ao max P.1 mmHg LV V1 max P.0 mmHg Ao V2 mean: 178.8 cm/sec LV V1 mean P.2 mmHg Ao mean P.2 mmHg LV V1 mean: 100.3 cm/sec Ao V2 VTI: 56.3 cm LV V1 VTI: 33.0 cm AV (velocity ratio): 0.59 EHSAN(I,D): 1.8 cm2 EHSAN(V,D): 1.5 cm2 SV(LVOT): 101.9 ml PA V2 max: 89.8 cm/sec TR max gustavo: 240.6 cm/sec TR max P.2 mmHg ECHO/Echo Complete Interpretation Summary The left ventricular ejection fraction is 65 %. Stage 1 diastolic dysfunction. Mild mitral annular calcification. Mild aortic stenosis. Ordering Physician: Jose Hernandez Referring Physician: Jose Hernandez MD Performed By: Suzanna Camacho RDCS
--- OUTSIDE RECORDS SUMMARY | 2025-08-08 08:21 | XMS RPT_ITS | CCD ---
Author Organization [facility] Care Team Providers Care Nurses' Aide Name Role Phone Care Physician, No Primary Primary Care Provider Unavailable Care Physician, No Primary Referring Provider Un available Dr. Julian Cruz Attending Provider Unavailable Primary Care Provider Unavailabl e Care Physician, No Primary Referring Provider Un available Roof OIL EXPERT, OIL EXPERTAta Alcantar Attending Provider Dr. Christiano De Leon Attending Provider Care Physician, No Primary Primary Care Provider Unavailable TREV SMITH Referring Unavailable DANA DEVRIES Attending Unavailable TREV SMITH Attending Unavailable TREV SMITH Referring Unavailable TREV SMITH Attending Unavailable PCP, NONE Referring Unavailable JASMINE, YOANNA Attending Unavailable JASMINE, YOANNA Referring Unavailable YOANNA STANTON Primary Care Unavailable TASHI DOCKERY Attending Unavailable TASHI DOCKERY Admitting Unavailable León Albarado Attending Unavailable A Non-OA, Provider Primary Care Unavailable Care Physician, No Primary Primary Care Provider Unavailable Care Physician, No Primary Referring Provider Un available Dr. Tashi Hernandez MD Attending Provider Tashi Hernandez Attending Unavailable Care Physician, No Primary Referring Unava ilable Care Physician, No Primary Primary Care Unava ilable Care Physician, No Primary Primary Care Unava ilable Tashi Hernandez Referring Unavailable Tashi Hernandez Attending Unavailable Medications Current Medications Medication Drug Class(es) Dates Sig (Normalized) Sig (Original) amLODIPine 2.5 mg oral tablet (11 sources) Dihydropyridine Calcium Channel Jhon Start: 07-14-2023 take 2 tablets by mouth once daily Amlodipine 2.5 mg tablet Active 5 mg PO DAILY July 14, 2023 8:32am Start: 07-14-2023 take 5 mg by mouth once daily Amlodipine Active 5 MG PO DAILY July 14, 2023 8:32am Start: 05-23-2022 End: 07-14-2023 take 1 tablet by mouth once daily Amlodipine 2.5 mg tablet Discontinued 2.5 mg PO DAILY 3 August 04, 2022 11:52am July 14, 2023 8:32am take 1 tablet by raheem th once daily amLODIPine (NORVASC) 5 MG tablet Take 1 tablet by mouth daily. Info provided by patient 0 Active aspirin 81 mg delayed release oral tablet (3 sources) Platelet Aggregation Inhibitor, Nonsteroidal Anti-inflammatory Drug Start: 04-23-2021 take 1 tablet by mouth once daily Aspirin (Enteric Coated Aspirin) 81 mg tablet,delayed release (DR/EC) Active 81 mg PO DAILY April 23, 2021 12:00am Synata B Complex Vitamins (B COMPLEX PO) (1 source) B Complex Vitami ns (B COMPLEX PO) Take by mouth. 0 Active hydrALAZINE hydrochloride 50 mg oral tablet (3 sources) Arteriolar Vasodilator Start: 05-01-2022 take 1 tablet by mouth twice daily Hydralazine 50 mg tablet Active 50 mg PO TWICE A DAY May 01, 2022 12:00am hydroCHLOROthiazide 25 mg oral tablet (5 sources) Thiazide Diuretic Start: 05-04-2024 Hydrochlorothiazide 25 mg tablet Active 12.5 mg PO DAILY May 04, 2024 9:28am diuretic Start: 04-23-2021 End: 05-04-2024 take 1 tablet by mouth once daily Hydrochlorothiazide 25 mg tablet Discontinued 25 mg PO DAILY April 23, 2021 12:00am May 04, 2024 9:30am diuretic lovastatin 40 mg oral tablet (7 sources) HMG-CoA Reductase Inhibitor Start: 05-01-2022 Lovastatin 40 mg tablet Active 60 mg PO EVERY EVENING May 01, 2022 10:03am cholesterol Start: 05-01-2022 take 60 mg by mouth once daily in the evening Lovastatin Active 60 MG PO EVERY EVENING May 01, 2022 10:03am Start: 04-23-2021 End: 05-01-2022 take 1 tablet by mouth once daily in the evening Lovastatin 40 mg tablet Discontinued 40 mg PO EVERY EVENING April 23, 2021 12:00am May 01, 2022 10:04am cholesterol take 1 tablet by raheem th once daily lovastatin (ALTOPREV) 40 MG 24 hr tablet Take by mouth nightly. 0 Active Magnesium (3 sources) Start: 05-01-2022 take 250 mg by mouth once daily Magnesium Active 250 MG PO DAILY May 01, 2022 10:04am Start: 05-01-2022 End: 05-04-2024 take 1 tablet by mouth once daily Magnesium 250 mg tablet Discontinued 250 mg PO DAILY May 01, 2022 12:00am May 04, 2024 9:29am Start: 05-01-2022 take 250 mg by mouth once mikel y Magnesium Active 250 MG PO DAILY May 01, 2022 12:00am Multiple Vitamins-Minerals (MULTIVITAMIN PO) (1 source) Multiple Vitamin s-Minerals (MULTIVITAMIN PO) Take by mouth. 0 Active Gi-Nvh-Yr-Xij49-Ajbabxu-Wlos in (Theragran-M Premier 50 Plus) 400-250-375 mcg tablet (3 sources) Start: 04-23-2021 take 50-400 tablets by mouth once daily Ak-Hyx-Kn-Xrl65-Ogntrcf-Wpy ein (Theragran-M Premier 50 Plus) 400-250-375 mcg tablet Active 1 TABLET PO DAILY April 23, 2021 9:14am Start: 04-23-2021 take 50-400 tablets by mouth once daily Xa-Adc-Rw-Iyt46-Fhuvnlf-Ihagzn (Theragra n-M Premier 50 Plus) 400-250-375 mcg tablet Active 1 {tbl} PO DAILY April 23, 2021 12:00am vitamin Start: 04-23-2021 take 50-400 tablets by mouth once daily Jf-Lkf-Ha-Vqc94-Yhkorqe-Lvdotp (Theragra n-M Premier 50 Plus) 400-250-375 mcg tablet Active 1 TABLET PO DAILY April 23, 2021 12:00am 24 hr NIFEdipine 30 mg extended release oral tablet (1 source) Dihydropyridine Calcium Channel Jhon take 1 tablet by mouth once daily NIFEdipine (ADALAT CC) 30 MG 24 hr tablet Take 1 tablet by mouth daily. 0 Active ondansetron 4 mg disintegrating oral tablet (1 source) Serotonin-3 Receptor Antagonist Start: 023 take 1 tablet by mouth every eight hours as needed Ondansetron (ZOFRAN-ODT) 4 MG disintegrating tablet Take 1 tablet by mouth every 8 hours as needed for Nausea and/or Vomiting. Dissolve on tongue then swallow. 20 tablet 0 07/25/2023 Active predniSONE 10 mg oral tablet (1 source) Start: 015 predniSONE (DELTASONE) 10 MG tablet Indications: Poison dave dermatitis First 7 days take 6 pills. Second week take 4 pills. Third week take 2 pills. 85 tablet 0 06/26/2015 Active Completed/Discontinued Medications Medication Drug Class(es) Dates Sig (Normalized) Sig (Original) ascorbic acid 500 mg oral tablet (4 sources) Vitamin C Start: 04-23-2021 End: 07-07-2025 take 1 tablet by mouth once daily Ascorbic Acid (Vitamin C) 500 mg tablet Discontinued 500 mg PO DAILY April 23, 2021 12:00am July 07, 2025 9:02am vitamin take 1 tablet by mouth once mikel y Ascorbic Acid (VITAMIN C) 500 MG tablet Take 1 tablet by mouth daily. 0 Active calcium citrate 1190 mg / cholecalciferol 0.005 mg oral tablet (1 source) Vitamin D Start: 05-04-2024 End: 07-07-2025 Calcium Citrate-Vitamin D3 (Citracal Regular) 250 mg-5 mcg (200 unit) tablet Discontinued 1 {tbl} PO DAILY May 04, 2024 12:00am July 07, 2025 9:02am clopidogrel 75 mg oral tablet (9 sources) P2Y12 Platelet Inhibitor Start: 04-25-2021 End: 05-04-2024 take 1 tablet by mouth once daily Clopidogrel (Plavix) 75 mg tablet Discontinued 75 mg PO DAILY 90 4 August 04, 2022 10:07am May 04, 2024 9:46am olmesartan medoxomil 40 mg oral tablet (11 sources) Angiotensin 2 Receptor Jhon Start: 04-23-2021 End: 07-14-2023 take 1 tablet by mouth once daily Olmesartan 40 mg tablet Discontinued 40 mg PO DAILY 90 4 August 04, 2022 10:07am July 14, 2023 9:10am blood pressure sulfacetamide sodium 100 mg/ml ophthalmic solution (3 sources) Sulfonamide Antibacterial Start: 04-23-2021 End: 06-06-2021 Sulfacetamide Sodium 10 % drops Discontinued 1 NMA OPHTHALMIC Q3H as needed for Ocular Congestion April 23, 2021 12:00am June 06, 2021 3:30pm Problems Active Problems Problem Classification Problem Date Documented Da te Episodic/Chronic Cardiac dysrhythmias (3 sources) Tachycardia; Translations: [Tachycardia, unspecified] 07-14-2023 Episodic Conditions associated with dizziness or vertigo (3 sources) Dizziness; Translations: [Dizziness and giddiness] 07-14-2023 Episodic Coronary atherosclerosis and other heart disease (5 sources) Coronary atherosclerosis; Translations: [Atherosclerotic heart disease of [place] coronary artery without angina pectoris] Chronic Comment on above: PCI/EBONY to mid LCX 0 05/21/[address] Guardado; Disorders of lipid metabolism (6 sources) Pure hypercholesterolemia ; Translations: [Pure hypercholesterolemia , unspecified] Onset: 05-11-2015 Chronic Essential hypertension (6 sources) Essential hypertension; Translations: [Essential (primary) hypertension] Onset: 07-25-2023 Chronic Heart valve disorders (5 sources) Heart murmur; Translations: [Cardiac murmur, unspecified] Onset: 07-07-2025 04-25-2021 Episodic Other diseases of kidney and ureters (3 sources) Cyst of kidney; Translations: [Cyst of kidney, acquired] 04-23-2021 Episodic Comment on above: Lt Other lower respiratory disease (3 sources) Dyspnea; Translations: [Dyspnea, unspecified] 04-25-2021 Episodic Other nervous system disorders (1 source) Numbness Onset: 07-11-2024 Episodic Other screening for suspected conditions (not mental disorders or infectious disease) (3 sources) Cardiovascular stress test abnormal; Translations: [Abnormal result of other cardiovascular function study] 04-23-2021 Episodic Residual codes; unclassified (1 source) Pain Onset: 07-11-2024 Episodic Screening and history of mental health and substance abuse codes (4 sources) Tobacco use and exposure - finding; Translations: [Personal history of nicotine dependence] Onset: 07-25-2023 04-23-2021 Episodic Unclassified (1 source) Tingling Onset: 07-11-2024 Unclassified (1 source) Contact with and (suspected) exposure to covid-19; Translations: [Contact with and (suspected) exposure to covid-19] Onset: 07-25-2023 Past or Other Problems Problem Classification Problem Date Documented Da te Episodic/Chronic Coronary atherosclerosis and other heart disease (4 sources) Stented coronary artery; Translations: [Presence of coronary angioplasty implant and graft] Onset: 04-23-2021 Episodic Comment on above: PCI/EBONY to mid LCX 0 05/21/[address] 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/an tiplatelets] Onset: 07-25-2023 Episodic Other nervous system disorders (1 source) Anesthesia of skin; Translations: [Anesthesia of skin] Onset: 07-31-2023 Episodic Other nervous system disorders (1 source) Paresthesia of skin; Translations: [Paresthesia of skin] Onset: 07-31-2023 Episodic Other non-traumatic joint disorders (1 source) Pain in right wrist; Translations: [Pain in right wrist] Onset: 07-31-2023 Episodic Other non-traumatic joint disorders (1 source) Pain in left wrist; Translations: [Pain in left wrist] Onset: 07-31-2023 Episodic Viral infection (2 sources) Viral disease; Translations: [Viral infection, unspecified] Onset: 07-25-2023 07-25-2023 Episodic Results Test Name Value Interpretation Reference Range Facility Cardiology Visit Reporton Cardiology Visit Report [facility] [address] [place] [address] OFFICE VISIT Date of Service: 07/07/25 MR#: [id number] Acct: [id number] Name: SAMM GARCIA Rep #: [id number] : 1945 Provider: Dr. Tashi goodman MD Age/Sex: 79/M Location: [facility] [place] Status: Signed HPI HPI History of Present Illness Details: Patient is a very pleasant 79-year-old white male that comes today for monitoring of his cardiovascular status. Patient lives in [place] August to March on a yearly basis. While he was down there this past year he cut his left hand the 3rd, 4th and 5th digit usp down the metatarsal with a table saw. He was life flighted to the hospital and has recovered. His digits were not able to be reattached. The patient tolerated this ordeal without any chest pain or symptoms from a cardiovascular standpoint. 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 He is very active in his home environment. The patient has a known history of coronary disease status post stenting of the circumflex in 2020. He really does not remember any prodromal symptoms. He had underwent a stress test for an unknown reason that was read as inconclusive and this led to the left heart catheterization in 2020. Patient also has a history of hyperlipidemia which is treated through his primary care physician in [place]. In October 2024 his total cholesterol was 123 HDL 39 LDL 72 and triglycerides 52. He also carries a history of hypertension his blood pressure was slightly elevated in office today at 154/76 it usually runs 120???130 in his home environment. The patient denying any anginal type symptoms denies any drop-off in his exercise tolerance denies any PND orthopnea he occasionally gets some dependent edema that resolves overnight. Intake Vital Signs 05/04/24 09:25 07/07/25 09:03 07/07/25 09:05 Height 5 ft 10 in 5 ft 10 in 5 ft 10 in Weight: 195 lb BMI 27.9 BP 154/76 H Blood Pressure Location Lt brachial Position Sitting Respiration 18 Pulse 68 Pulse Source Monitor Pulse Oximetry (%) 94 Oxygen Delivery Method room air Intake Visit Reasons: 1 Y FU Diet Aide Required: No Accompanied by: Is patient in pain?: No Allergies No Known Allergies Allergy (Unverified 07/07/25 08:59) Medications ???Medication ???Instructions ???Recorded ???Confirmed ???Type aspirin 81 mg tablet,delayed 81 mg PO DAILY heart health 07/07/25 History release (Enteric Coated Aspirin) tfjlboqp-gwu-mwymt acid 400 1 tab PO DAILY vitamin 04/23/21 History mcg-coQ10 250 mcg-lycop 375 mcg-lut tablet (Theragran-M Premier 50 Plus) hydralazine 50 mg tablet 50 mg PO BID 05/01/22 07/07/25 His tory lovastatin 40 mg tablet 60 mg PO QPM cholesterol 05/01/22 07/07/25 History amlodipine 2.5 mg tablet 5 mg PO DAILY 07/14/23 07/07/25 Hi story olmesartan 40 mg tablet 40 mg PO DAILY blood pressure #90 07/14/23 07/07/25 Rx tabs hydrochlorothiazide 25 mg tablet 12.5 mg PO DAILY diuretic 05/04/24 07/07/25 History Ejection fraction %: 55 Have you fallen in the past year?: No PFSH Medical History Finger amputation, traumatic Femur fracture, right Presence of stent in coronary artery ( 05/21/21) Atherosclerotic heart disease of [place] coronary artery without angina pectoris Cardiac murmur Diverticulosis Renal cyst Essential hypertension Pure hypercholesterolemia Surgical History History of nasal surgery History of open reduction and internal fixation (ORIF) procedure History of bilateral cataract extraction Presence of coronary angioplasty implant and graft ( 05/21/21) History of foot surgery History of basal cell carcinoma excision History of prostate biopsy History of hernia repair History of arthroplasty of right knee Family History Mother Hypertension Cardiac murmur Father CVA (cerebral vascular accident) Sister Cardiac murmur Sister Cardiac murmur Social History Smoking Status: Former smoker how long ago did patient quit smokin alcohol intake: never substance use type: does not use caffeine: Yes Type: tea Number of servings: 1 ROS Const Const: Negative for fatigue or weakness ENT ENT: Negative for dizziness or balance problems Cardio Chest Pain: No Palpitations: No Edema: None Muscle aches with walking: None Resp Respiratory: Positive for SOB with activity; Negative for SOB at rest or SOB orthopnea SOB lying down GI GI: Negative nausea, vomiting or heartburn Musc Musc: Negative (more content not included)... Normal [facility] BASIC METABOLIC PANELon Anion gap [Moles/Vol] 9 mmol/L Normal 8-12 [employer] Comment on above: Performed By: #### 4 [id number] #### KAIT BAUMAN (2012) [facility] [address] [place] [address] Calcium [Mass/Vol] 9.0 mg/dL Normal 8.4-10.4 [facility] [employer] [facility] Comment on above: Performed By: #### 4 [id number], [id number], [id number] #### KAIT BAUMAN (2012) [facility] [address] [employer] [place] [address] Chloride [Moles/Vol] 103 mmol/L Normal 96-109 [facility] Comment on above: Performed By: #### 4 [id number], [id number] #### KAIT BAUMAN (2012) [facility] [address] [place] [address] CO2 [Moles/Vol] 22 mmol/L Normal 22-30 [facility] Comment on above: Performed By: #### 4 [id number], [id number] #### KAIT BAUMAN (2012) [facility] [address] [facility] [place] [address] Creatinine [Mass/Vol] 1.08 mg/dL Normal 0.66-1.25 [facility] Comment on above: Performed By: #### 4 [id number], [id number], [id number] #### KAIT BAUMAN (2012) [facility] [address] [facility] [place] [address] GLOMERULAR FILTRATION RATE ML/MIN/1.73 SQ M.PREDICTED 70.2 mL/min/1.73m*2 Normal >=60.0 [facility] Comment on above: Result Comment: eGFR calculation based on the Chronic Kidney Disease Epidemiology Collaboration (CKD-EPI) equation refit without adjustment for race. Categories in Chronic Kidney Disease (CKD) Category: GFR(mL/min/1.73m^2) Interpretation: G1* 90 or greater Normal or high G2* 60-89 Mild decrease G3a 45-59 Mild to moderate decrease G3b 30-44 Moderate to severe decrease G4 15-29 Severe decrease G5 14 or less Kidney failure *G1&G2: In the absence of evidence of kidney damage, neither GFR category G1 nor G2 fulfill the criteria for CKD Kidney Int Suppl.2013;3:1-150 Performed By: #### 4 [id number], [id number] #### KAIT BAUMAN (2012) [facility] [address] [place] [address] Glucose [Mass/Vol] 113 mg/dL High 65-100 [facility] Comment on above: Performed By: #### 4 [id number], [id number], [id number] #### KAIT BAUMAN (2012) [facility] [address] [place] [address] Potassium [Moles/Vol] 3.8 mmol/L Normal 3.6-5.1 [facility] Comment on above: Performed By: #### 4 [id number], [id number], [id number] #### KAIT BAUMAN (2012) [facility] [address] [place] [address] Sodium [Moles/Vol] 134 mmol/L Low 135-147 [facility] Comment on above: Performed By: #### 4 [id number], [id number], [id number] #### KAIT BAUMAN (2012) [facility] [address] [place] [address] Urea nitrogen [Mass/Vol] 24 mg/dL Normal 8-26 [facility] Comment on above: Performed By: #### 4 [id number], [id number] #### KAIT BAUMAN (2012) [facility] [address] [place] [address] Basic metabolic panel aka Ch em 8on 07-25-2023 Anion gap [Moles/Vol] 9 mmol/L 8 - 12 mmol/L [facility] Calcium [Mass/Vol] 9.0 mg/dL 8.4 - 10. 4 mg/dL [facility] Calcium hydrogen phosphate dihydrate crystals LM Ql (Urine sed) 24 mg/dL 8 - 26 mg/dL [facility] Chloride [Moles/Vol] 103 mmol/L 96 - 109 mmol/L [facility] CO2 (BldMV) [Moles/Vol] 22 mmol/L 22 - 30 mmol/L [facility] Creatinine [Mass/Vol] 1.08 mg/dL 0.66 - 1.25 mg/dL [facility] GFR/1.73 sq M.predicted MDRD (S/P/Bld) [Vol rate/Area] 70.2 mL/min/{1.73_m2} - PINF [facility] Comment on above: eGFR calculation bas ed on the Chronic Kidney Disease Epidemiology Collaboration (CKD-EPI) equation refit without adjustment for race. Categories in Chronic Kidney Disease (CKD) Category: GFR(mL/min/1.73m^2) Interpretation: G1* 90 or greater Normal or high G2* 60-89 Mild decrease G3a 45-59 Mild to moderate decrease G3b 30-44 Moderate to severe decrease G4 15-29 Severe decrease G5 14 or less Kidney failure *G1&G2: In the absence of evidence of kidney damage, neither GFR category G1 nor G2 fulfill the criteria for CKD Kidney Int Suppl.2013;3:1-150 Glucose [Mass/Vol] 113 mg/dL High 65 - 100 mg/dL [facility] Interpretation and review of laboratory results Abnormal [facility] Potassium [Moles/Vol] 3.8 mmol/L 3.6 - 5.1 mmol/L [facility] Sodium [Moles/Vol] 134 mmol/L Low 135 - 147 mmol/L [facility] CBC AND DIFFERENTIALon 07-25 ABSOLUTE BASOPHIL 0.0 x10*3/uL Normal 0.0-0.1 [facility] Comment on above: Performed By: #### 4 [id number] #### KAIT BAUMAN (2012) [facility] [address] [place] [address] ABSOLUTE EOSINOPHIL 0.1 x10*3/uL Normal 0.1-0.3 [facility] Comment on above: Performed By: #### 4 [id number] #### KAIT BAUMAN (2012) [facility] [address] [address] ABSOLUTE IMMATURE GRANULOCYTES 0.0 x10*3/uL Normal 0.0-0.1 [facility] Comment on above: Performed By: #### 4 [id number] #### KAIT BAUMAN (2012) [facility] [address] [employer] [place] [address] ABSOLUTE LYMPH 3.1 x10*3/uL Normal 1.2-3.3 [facility] Comment on above: Performed By: #### 4 [id number] #### KAIT BAUMAN (2012) [facility] [address] [employer] [address] ABSOLUTE MONO 0.3 x10*3/uL Normal 0.2-0.6 [facility] Comment on above: Performed By: #### 4 [id number] #### KAIT BAUMAN (2012) [facility] [address] [employer] [place] [address] ABSOLUTE NEUTROPHIL 4.2 x10*3/uL Normal 2.4-6.6 [facility] Comment on above: Performed By: #### 4 [id number] #### KAIT BAUMAN (2012) [facility] [address] [place] [address] Basophils/100 WBC (Bld) 0.3 % Normal [facility] Comment on above: Performed By: #### 4 [id number] #### KAIT BAUMAN (2012) [facility] [address] [place] [address] Eosinophils/100 WBC (Bld) 0.8 % Normal [facility] Comment on above: Performed By: #### 4 [id number] #### KAIT BAUMAN (2012) [facility] [address] [place] [address] Erythrocyte distribution width (RBC) [Ratio] 14.9 % High 11.5-14.5 [facility] Comment on above: Performed By: #### 4 [id number] #### KAIT BAUMAN (2012) [facility] [address] [place] [address] Hematocrit (Bld) [Volume fraction] 33.7 % Low 37.7-51.1 [facility] Comment on above: Performed By: #### 4 [id number] #### KAIT BAUMAN (2012) [facility] [address] [place] [address] Hemoglobin (Bld) [Mass/Vol] 11.4 g/dL Low 12.8-17.7 [facility] Comment on above: Performed By: #### 4 [id number] #### KAIT BAUMAN (2012) [facility] [address] [place] [address] Immature granulocytes/100 WBC (Bld) 0.0 % Normal [facility] Comment on above: Performed By: #### 4 [id number] #### KAIT BAUMAN (2012) [facility] [address] [place] [address] Lymphocytes/100 WBC (Bld) 40.4 % Normal [facility] Comment on above: Performed By: #### 4 [id number] #### KAIT BAUMAN (2012) [facility] [address] [place] [address] MCH (RBC) [Entitic mass] 30.1 pg Normal 27.0-34.2 [facility] Comment on above: Performed By: #### 4 [id number] #### KAIT BAUMAN (2012) [facility] [address] [place] [address] MCHC (RBC) [Mass/Vol] 33.8 g/dL Normal 31.4-36.2 [facility] Comment on above: Performed By: #### 4 [id number] #### KAIT BAUMAN (2012) [facility] [address] [place] [address] MCV (RBC) [Entitic vol] 88.9 fL Normal 80.6-99 [facility] Comment on above: Performed By: #### 4 [id number] #### KAIT BAUMAN (2012) [facility] [address] [place] [address] Monocytes/100 WBC (Bld) 4.2 % Normal [place] [facility] Comment on above: Performed By: #### 4 [id number] #### KAIT BAUMAN (2012) [facility] [address] [place] [address] Neutrophils/100 WBC (Bld) 54.3 % Normal [facility] Comment on above: Performed By: #### 4 [id number] #### KAIT BAUMAN (2012) [facility] [address] [place] [address] PLATELET COUNT 163 x10*3/uL Normal 150-400 [facility] Comment on above: Performed By: #### 4 [id number] #### KAIT BAUMAN (2012) [facility] [address] [place] [address] RED BLOOD CELL COUNT 3.79 x10*6/uL Normal 3.70-5.70 [facility] Comment on above: Performed By: #### 4 [id number] #### KAIT BAUMAN (2012) [facility] [address] [place] [address] WHITE BLOOD CELLS 7.6 x10*3/uL Normal 4.3-10.3 [facility] Comment on above: Performed By: #### 4 [id number] #### KAIT BAUMAN (2012) [facility] [address] [place] [address] CBC with Differentialon Absolute Immature Granulocytes 0.0 [facility] Age [Time] 88.9 fL 80.6 - 99 fL [facility] Age [Time] 30.1 pg 27.0 - 34.2 pg [facility] Age [Time] 33.8 g/dL 31.4 - 36.2 g/dL [facility] B. burgdorferi IgM IB Ql (CSF) 40.4 % [facility] Basophils (Bld) [#/Vol] 0.0 10*3/uL [facility] Basophils/100 WBC (Body fld) 0.3 % [facility] Eosinophils (Bld) [#/Vol] 3.1 10*3/uL [facility] Eosinophils (Bld) [#/Vol] 0.3 10*3/uL [facility] Eosinophils (Bld) [#/Vol] 0.1 10*3/uL [facility] Eosinophils/100 WBC (Bld) 0.8 % [facility] Erythrocyte distribution width (RBC) [Ratio] 14.9 % High 11.5 - 14.5 % [facility] Hematocrit (Bld) [Volume fraction] 33.7 % Low 37.7 - 51.1 % [facility] Hexanoylglycine (U) [Moles/Vol] 11.4 g/dL Low 12.8 - 17.7 g/dL [facility] Immature granulocytes/100 WBC (Bld) 0.0 % [facility] Interpretation and review of laboratory results Abnormal [facility] Monocytes/100 WBC (Bld) 4.2 % [facility] Neurotensin (P) [Mass/Vol] 54.3 % [facility] Neutrophils (Bld) [#/Vol] 4.2 10*3/uL [facility] Platelets (Bld) [#/Vol] 163 10*3/uL [facility] RBC (Bld) [#/Vol] 3.79 10*6/uL [employer] [facility] WBC (Bld) [#/Vol] 7.6 10*3/uL [facility] FLUAV+FLUBV Ag Ql (Nph)Order ed By: Shavonne Whitmore on 07-25-2023 FLUAV RNA CHANTAL+probe Ql (Nph) Negative Negative [facility] FLUBV RNA CHANTAL+probe Ql (Nph) Negative Negative [facility] Interpretation and review of laboratory results Normal [facility] HEPATIC FUNCTION PANELon Albumin [Mass/Vol] 4.5 g/dL Normal 3.5-5.0 [facility] Comment on above: Performed By: #### 4 [id number] #### KAIT BAUMAN (2012) [facility] [address] [place] [address] ALK PHOS 58 U/L Normal 24-126 [facility] Comment on above: Performed By: #### 4 [id number] #### KAIT BAUMAN (2012) [facility] [address] [place] [address] ALT [Catalytic activity/Vol] 26 U/L Normal 4-50 [facility] Comment on above: Performed By: #### 4 [id number] #### KAIT BAUMAN (2012) [facility] [address] [place] [address] AST [Catalytic activity/Vol] 25 U/L Normal 3-55 [facility] Comment on above: Performed By: #### 4 [id number], [id number], [id number] #### AKIT BAUMAN (2012) [facility] [address] [place] [address] Bilirubin [Mass/Vol] 1.0 mg/dL Normal 0.2-1.6 [facility] Comment on above: Performed By: #### 4 [id number] #### KAIT BAUMAN (2012) [facility] [address] [place] [address] Bilirubin.indirect [Mass/Vol] 0.1 mg/dL Normal <=0.5 [facility] Comment on above: Performed By: #### 4 [id number], [id number], [id number] #### KAIT BAUMAN (2012) [facility] [address] [place] [address] Protein [Mass/Vol] 7.0 g/dL Normal 6.3-8.2 [facility] Comment on above: Performed By: #### 4 [id number], [id number], [id number] #### KAIT BAUMAN (2012) [facility] [address] [place] [address] Hepatic function panelon Albumin (Syn fld) [Mass/Vol] 4.5 g/dL 3.5 - 5.0 g/dL [facility] Aldosterone (U) [Mass/Vol] 58 U/L 24 - 126 U/L [facility] ALT [Catalytic activity/Vol] 26 U/L 4 - 50 U/L [facility] AST [Catalytic activity/Vol] 25 U/L 3 - 55 U/L [facility] Bilirubin [Mass/Vol] 1.0 mg/dL 0.2 - 1.6 mg/dL [facility] Bilirubin.conjugate d [Mass/Vol] 0.1 mg/dL NINF - 0.5 mg/dL [facility] Protein [Mass/Vol] 7.0 g/dL 6.3 - 8.2 g/dL [facility] INFLUENZA A AND B MOLECULARo n 07-25-2023 INFLUENZA A AND B MOLECULAR Negative Normal Negative [facility] Comment on above: Performed By: #### 3 [id number] #### KAIT BAUMAN (2012) [facility] [address] [place] [address] LIPASEon 07-25-2023 Lipase [Catalytic activity/Vol] 78 U/L Normal 23-300 [facility] Comment on above: Performed By: #### 4 [id number], [id number], [id number] #### KAIT BAUMAN (2012) [facility] [address] [place] [address] Lipaseon 07-25-2023 Lipase [Catalytic activity/Vol] 78 U/L 23 - 300 U/L [facility] No Panel Informationon 07-25 Interpretation and review of laboratory results Normal [facility] SARS-COV-2, PCROrdered By: Lola Brar on 07-25-2023 SARS-CoV-2 (COVID-19) RNA CHANTAL+probe Ql (Resp) Negative Negative [facility] Comment on above: Negative results do not preclude SARS-CoV-2 infection and should not be used as the sole basis for treatment or other patient management decisions. Negative results must be combined with clinical observations, patient history, and epidemiological information. The Xpert Xpress CoV-2/Flu/RSV plus test is only for use under the Food and Drug Administration's Emergency Use Authorization. Results are for the simultaneous detection and differentiation of SARS-CoV-2, influenza A virus, influenza B virus and RSV RNA which are generally detectable in upper respiratory specimens during the acute phase of infection. SARS-COV-2, PCRon 07-25-2023 SARS-CoV-2 (COVID-19) RNA CHANTAL+probe Ql (Unsp spec) SARS-COV-2, PCR Negative Negative Negative results do not preclude SARS-CoV-2 infection and should not be used as the sole basis for treatment or other patient management decisions. Negative results must be combined with clinical observations, patient history, and epidemiological information. The Xpert Xpress CoV-2/Flu/RSV plus test is only for use under the Food and Drug Administration's Emergency Use Authorization. Results are for the simultaneous detection and differentiation of SARS-CoV-2, influenza A virus, influenza B virus and RSV RNA which are generally detectable in upper respiratory specimens during the acute phase of infection. [facility] Comment on above: Performed By: #### 3 [id number] #### KAIT BAUMAN (2012) [facility] [address] [place] [address] SARS-CoV-2 (COVID-19) RNA NA A+probe Ql (Resp)Ordered By: Background Lab on 07-25-2023 Interpretation and review of laboratory results Normal [facility] URINE CHEM STRIP ONLYon Appearance (U) Clear [facility] Comment on above: Performed By: #### 4 [id number] #### KAIT BAUMAN (2012) [facility] [address] [place] [address] BILIRUBIN UA Negative Normal Negative [facility] Comment on above: Performed By: #### 4 [id number] #### KAIT BAUMAN (2012) [facility] [address] [place] [address] Color (U) Yellow Normal [facility] Comment on above: Performed By: #### 4 [id number] #### KAIT BAUMAN (2012) [facility] [address] [place] [address] Glucose Ql (U) Negative Normal Negative [facility] Comment on above: Performed By: #### 4 [id number] #### KAIT BAUMAN (2012) [facility] [address] [place] [address] Ketones Ql (U) Negative Normal Negative [facility] Comment on above: Performed By: #### 4 [id number] #### KAIT BAUMAN (2012) [facility] [address] [place] [address] LEUKOESTERASE Negative Normal Negative [facility] Comment on above: Performed By: #### 4 [id number] #### KAIT BAUMAN (2012) [facility] [address] [place] [address] Nitrite Ql (U) Negative Normal Negative [facility] Comment on above: Performed By: #### 4 [id number] #### KAIT BAUMAN (2012) [facility] [address] [place] [address] OCCULT BLD Negative Normal Negative [facility] Comment on above: Performed By: #### 4 [id number] #### KAIT BAUMAN (2012) [facility] [address] [place] [address] PH, URINE 6.5 Normal [facility] Comment on above: Performed By: #### 4 [id number] #### KAIT BAUMAN (2012) [facility] [address] [place] [address] Protein Ql (U) Trace Abnormal Negative [facility] Comment on above: Performed By: #### 4 [id number] #### KAIT BAUMAN (2012) [facility] [address] [place] [address] SPECIFIC GRAVITY, URINE 1.020 Normal [facility] Comment on above: Performed By: #### 4 [id number] #### KAIT BAUMAN (2012) [facility] [address] [place] [address] UROBILINOGEN UA <2.0 Normal <2.0 [facility] Comment on above: Performed By: #### 4 [id number] #### KAIT BAUMAN (2012) [facility] [address] [place] [address] Urine Dipon 07-25-2023 Acetone [Mass/Vol] Negative Negative [employer] [facility] Appearance (Body fld) Clear [facility] Bilirubin Ql (U) Negative Negative [facility] Color (Stone) Yellow [facility] G6PD (RBC) [Catalytic activity/Vol] Negative Negative [facility] Interpretation and review of laboratory results Abnormal [facility] Leukocyte esterase Test strip Ql (U) Negative Negative [facility] Nitrite Test strip (U) [Mass/Vol] Negative Negative [facility] pH (Romie fld) 6.5 [facility] Protein (U) [Mass/Vol] Trace Abnormal Negative [facility] [place] IgE Qn (S) Negative Negative [employer] [facility] Specific gravity (U) [Rel density] 1.020 [facility] Urobilinogen Qn (U) <2.0 NINF - 2.0 [facility] XR Chest Single viewon 07-25 No acute heart or lung disease identified. [facility] EXAM: XR CHEST 1 VIE W HISTORY: . fever nausea . COMPARISON: None. TECHNIQUE: Single view of the chest FINDINGS: Heart and vascularity are unremarkable. Lungs are free of focal infiltrates. Early atherosclerotic changes of the thoracic aorta are noted. Raleigh Mena MD - 07/25/2023 EXAM: XR CHEST 1 VIEW HISTORY: . fever nausea . COMPARISON: None. TECHNIQUE: Single view of the chest FINDINGS: Heart and vascularity are unremarkable. Lungs are free of focal infiltrates. Early atherosclerotic changes of the thoracic aorta are noted. IMPRESSION: No acute heart or lung disease identified. [facility]iology Study observation (narrative) [facility] XR Chest Single viewOrdered By: Raleigh Jacobo on 07-25-2023 [facility] Work Phone: Basophil percentageon 2021 Bilirubin [Mass/Vol] 0.70 mg/dL 0.20-1.00 [facility] Work Phone: Comment on above: For patients on eltr ombopag therapy, use of Dimension Mumford TBIL is not recommended. Cholesterol [Mass/Vol] 150 mg/dL <200 [facility] Work Phone: Comment on above: <200 mg/dL Desirable 200-240 mg/dL Borderline >240 mg/dL High Risk Protein [Mass/Vol] 7.7 g/dL 6.4-8.2 [facility] Work Phone: Triglyceride [Mass/Vol] 82 mg/dL [facility] Work Phone: Comment on above: The drugs N-Acetylcy steine and Metamizole may falsely depress this assay.Serum Triglycerides Reference Interval Normal <150 mg/dL Borderline high 150 - 199 mg/dL High 200 - 499 mg/dL Very High > or = 500 mg/dL Direct bilirubinon Bilirubin.direct [Mass/Vol] 0.17 mg/dL 0.00-0.30 [facility] Work Phone: Laboratory - Chemistry and C hemistry - challengeon 05-01-2022 ALP [Catalytic activity/Vol] 52 U/L 45-117 [facility] Work Phone: ALT [Catalytic activity/Vol] 25 U/L 16-61 [facility] Work Phone: Globulin (S) [Mass/Vol] 3.6 g/dL 2.2-4.2 [facility] Work Phone: Serum or plasma albumin kinza urement (mass/volume)on 05-01-2022 Albumin [Mass/Vol] 4.1 g/dL 3.2-5.0 [facility] Work Phone: Serum or plasma cholesterol in HDL measurement (mass/volume)on 05-01-2022 Cholesterol in HDL [Mass/Vol] 54 mg/dL [facility] Work Phone: Comment on above: The drugs N-Acetylcy steine and Metamizole may falsely depress this assay. Reference Range HDL <40 mg/dL Low HDL Cholesterol HDL >or= 60 mg/dL High HDL Cholesterol Serum or plasma cholesterol in VLDL measurement (mass/volume)on 05-01-2022 Cholesterol in VLDL [Mass/Vol] 16 mg/dL 5-40 [facility] Work Phone: Serum or plasma low density lipoprotein (LDL) cholesterol measurement (mass/volume)on 05-01-2022 Cholesterol in LDL [Mass/Vol] 80 mg/dL 0-130 [facility] Work Phone: Thin prep Papanicolaou smear with manual screeningon 05-01-2022 Thin prep Papanicolaou smear with manual screening 12 U/L 15-37 [facility] Work Phone: Vital Signs Date Time Vital Sign Value Performing Clinician Facility 07-07-2025 09:05-0400 Body height 177.8 cm No Primary Care Physician [facility] 07-07-2025 09:03-0400 Body mass index (BMI) [Ratio] 27.9 kg/m2 No Primary Care Physician [facility] 07-07-2025 09:03-0400 Body weight 88.45 kg No Primary Care Physician [facility] 07-07-2025 09:03-0400 Diastolic blood pressure 76 mm[Hg] No Primary Care Physician [facility] 07-07-2025 09:03-0400 Heart rate 68 /min No Primary Care Physician [facility] 07-07-2025 09:03-0400 Respiratory rate 18 /min No Primary Care Physician [facility] 07-07-2025 09:03-0400 SaO2% (BldA) [Mass fraction] 94 % No Primary Care Physician [facility] 07-07-2025 09:03-0400 Systolic blood pressure 154 mm[Hg] No Primary Care Physician [facility] 07-25-2023 11:36-0400 Body height 177.8 cm Tashi Dockery MD Work Phone: [facility] 07-25-2023 11:36-0400 Body mass index (BMI) [Ratio] 27.26 kg/m2 Tashi Dockery MD Work Phone: [facility] 07-25-2023 11:36-0400 Body temperature 99.81 [degF] Tashi Dockery MD Work Phone: [facility] 07-25-2023 11:36-0400 Body weight 86.18 kg Tashi Dockery MD Work Phone: [facility] 07-25-2023 11:36-0400 Diastolic blood pressure 69 mm[Hg] Tashi Dockery MD Work Phone: [facility] 07-25-2023 11:36-0400 Heart rate 94 /min Tashi Dockery MD Work Phone: [facility] 07-25-2023 11:36-0400 Respiratory rate 18 /min Tashi Dockery MD Work Phone: [facility] 07-25-2023 11:36-0400 SaO2% (BldA) [Mass fraction] 96 % Tashi Dockery MD Work Phone: [facility] 07-25-2023 11:36-0400 Systolic blood pressure 141 mm[Hg] Tashi Dockery MD Work Phone: [facility] 07-14-2023 08:29-0400 Body height 177.8 cm No Primary Care Physician [facility] 07-14-2023 08:29-0400 Body mass index (BMI) [Ratio] 27.9 kg/m2 No Primary Care Physician [facility] 07-14-2023 08:29-0400 Body weight 88.45 kg No Primary Care Physician [facility] 07-14-2023 08:29-0400 Diastolic blood pressure 75 mm[Hg] No Primary Care Physician [facility] 07-14-2023 08:29-0400 Heart rate 64 /min No Primary Care Physician [facility] 07-14-2023 08:29-0400 Respiratory rate 18 /min No Primary Care Physician [facility] 07-14-2023 08:29-0400 SaO2% (BldA) [Mass fraction] 97 % No Primary Care Physician [facility] 07-14-2023 08:29-0400 Systolic blood pressure 139 mm[Hg] No Primary Care Physician [facility] 05-01-2022 10:02-0400 Body height 177.8 cm No Primary Care Physician [facility] Work Phone: 05-01-2022 10:02-0400 Body mass index (BMI) [Ratio] 28 kg/m2 No Primary Care Physician [facility] Work Phone: 05-01-2022 10:02-0400 Body weight 88.56 kg No Primary Care Physician [facility] Work Phone: 05-01-2022 10:02-0400 Diastolic blood pressure 82 mm[Hg] No Primary Care Physician [facility] Work Phone: 05-01-2022 10:02-0400 Heart rate 60 /min No Primary Care Physician [facility] Work Phone: 05-01-2022 10:02-0400 Respiratory rate 16 /min No Primary Care Physician [facility] Work Phone: 05-01-2022 10:02-0400 Systolic blood pressure 160 mm[Hg] No Primary Care Physician [facility] Work Phone: Encounters Encounter Date Encounter Type Care Provider Facility Start: 08-08-2025 ambulatory No Primary Car e Physician Facility:[facility] Start: 07-07-2025 End: 07-07-[address] Tashi Hernandez MD [facility] Work Phone: Start: 07-07-2025 End: 07-07-2025 ambulatory No [facility] Start: 05-31-2025 ambulatory [facility] Start: 07-11-2024 End: 07-11-2024 ambulatory [facility] Start: 10-02-2023 ambulatory [facility] Start: 07-31-2023 End: 07-31-2023 ambulatory [facility] Start: 07-25-2023 Emergency department patient visit YOANNA FERRARO [facility] Start: 07-25-2023 End: 07-25-2023 Emergency department patient visit Tashi Dockery MD Work Phone: [facility] Comment on above: Viral syndrome (Prim naeem Dx) Start: 07-24-2023 Non-patient / Non-visit No Primary Care Physician [facility] Work Phone: Start: 07-22-2023 Non-patient / Non-visit No Primary Care Physician [facility] Start: 07-22-2023 End: 07-22-2023 ambulatory No Primary Care Physician [facility] Work Phone: Start: 07-22-2023 End: 07-22-2023 Patient encounter procedure No Primary Care Physician [facility] Work Phone: Start: 07-22-2023 Registered Referred No Primary Care Physician [facility] Work Phone: Start: 07-14-2023 End: 07-14-2023 Patient encounter procedure No Primary Care Physician [facility] Work Phone: Start: 05-01-2022 End: 05-01-2022 Patient encounter procedure No Primary Care Physician [facility] Procedures Date Procedure Procedure Detail Performing Clinician Start: 07-25-2023 Radiologic exam ches t single view Yoanna Fe Fernandez APRN [employer] Work Phone: Start: 07-25-2023 Urnls dip stick/tabl et rgnt non-auto w/o micrscp Valeriaelyssa Lr APRN [employer] Work Phone: Start: 07-25-2023 Basic metabolic pane l calcium total Valeriaelyssa Lr APRN [employer] Work Phone: Start: 07-25-2023 Hepatic function panel Valeria Be WORLEY [employer] Work Phone: Start: 07-25-2023 Iadna respiratry pro be & rev trnscr 3-5 targets Valeria Be [employer]LEY [employer] Work Phone: Start: 07-25-2023 Sars-cov-2 detection by dna/rna Valeria Lr APRN [employer] Work Phone: Plan of Treatment Date Care Activity Detail Author Start: 07-31-2023 End: 07-31-2023 Patient encounter procedure 07/31/2023 8:15 AM EDT Office Visit [facility] [place] [address] [place] [address] Trev Smith MD [address] [place] [address] [facility] [place] Start: 07-24-2023 Influenza vaccinatio n given INFLUENZA VACCINE (#1) [facility] Start: 2009 Fall risk assessment FALL RISK [facility] Start: 2009 Glaucoma screening GLAUCOMA/EY E EXAM AGE 65+ [facility] Start: 2009 Pneumococcal 23-leonel nt polysaccharide vaccination given (situation) PNEUMONIA VACCINE (PCV13 PPSV23) (1 - PCV) [facility] Start: 1994 Zoster vaccine hzv l gurwinder for subcutaneous use ZOSTER (SHINGLES) VACCINE (1 of 2) [facility] Start: 1979 Fasting lipid profile LIPID SCREENIN G [facility] Start: 1962 ANNUAL WELLNESS VISIT ANNUAL WELLNES S VISIT [facility] Start: 1956 Depression screening using PHQ-9 (Patient Health Questionnaire 9) score DEPRESSION SCREENING [facility] Start: 1955 Administration of diphtheria + tetanus + acellular pertussis vaccine DTAP/TDAP/TD VACCINE (1 - Tdap) [facility] Start: [birth year]-04-1946 COVID-19 VACCINE (#1) COVID-19 VACCI NE (#1) [facility] End: 07-25-2023 Dark Green [facility] Comment on above: Once for 1 Occurrenc es starting 07/25/2023 until 07/25/2023, 1 completed End: 07-25-2023 Gold Top [facility] Comment on above: Once for 1 Occurrenc es starting 07/25/2023 until 07/25/2023, 1 completed End: 07-25-2023 Lavender Top [facility] Comment on above: Once for 1 Occurrenc es starting 07/25/2023 until 07/25/2023, 1 completed End: 07-25-2023 LIGHT BLUE TOP [facility] Comment on above: Once for 1 Occurrenc es starting 07/25/2023 until 07/25/2023, 1 completed End: 07-25-2023 Light Green Top [facility] Comment on above: Once for 1 Occurrenc es starting 07/25/2023 until 07/25/2023, 1 completed End: 07-25-2023 NIKI CAMACHO [facility] Work Phone: Comment on above: One Time for 1 Occur rences starting 07/25/2023 until 07/25/2023 [facility] Immunizations Immunization Date Immunization Notes Care Provider Cate kimbrough 08-19-2019 influenza virus vaccine, unspecified formulation Tashi Dockery MD Work Phone: [facility] [employer] Payers Date Payer Category Payer Self-pay [id number] 2025 Medicare [id number] 2017 Private Health Insurance HUMANA HUMANA [id number] 2017-Present [phone] [address] [address] [place] [address] PPO [id number] 1945 Unknown [id number] 1945 Unknown [id number] 1945 Unknown [id number] 1945 Unknown [id number] 1945 Unknown [id number] Unknown [id number] Unknown [id number] Social History Date Type Detail Facility Start: 05-01-2022 End: 07-14-2023 Tobacco smoking status NHIS Unknown if ever smoked [facility] Start: 1945 Sex Assigned At Male [facility] Start: 05-11-2015 End: 07-14-2023 Tobacco smoking status NHIS Ex-smoker [facility] History of tobacco use Current smoker [facility] Start: 07-25-2023 Alcohol intake Current drinke r of alcohol (finding) [facility] Start: 07-25-2023 History of Social function [facility] Start: 07-25-2023 Tobacco use panel [facility] Start: 05-11-2015 Alcohol Comment occ [facility] Start: 1945 [facility] Note 07-25-2023 Tashi Dockery MD - 07/25/2023 1:18 PM EDT Note Date & Type Note Facility 07-25-2023 Physician Emergency department Note I personally saw and examined this patient. I supervised the care and treatment of this patient. I formulated the medical decision making plan verbally with the midlevel, OIL EXPERT, or PA, which led to the disposition, treatment, discharge, or admission of this patient. I personally reviewed all laboratory and imaging results and discussed them with the midlevel provider. The orders entered are the direct result of that medical decision making and treatment plan formulated and discussed with the advanced practice provider. I did discuss with the patient the plan of care and the results of the testing, as well as strict return precautions in the case of discharge. Please see KHUSHBU's note for further details regarding this case. Nursing documentation of past medical history, surgical history, family history, and social history and medications were reviewed and I agree except as noted in the body of this note. HPI: Pt is a 77 y.o. male seen for fever and chills and reduced appetite. No other complaints. ROS: All other systems reviewed and are negative except as described above. ED Triage Vitals [07/25/23 1136] BP 141/69 Heart Rate 94 Resp 18 Temp 99.8 F (37.7 C) Temp src Oral SpO2 96 % Weight 190 lb (86.2 kg) Height 5' 10 (1.778 m) BMI (Calculated) 27.26 Physical Exam Constitutional: well-developed and well-nourished. No distress. Cardiovascular: regular rhythm and normal heart sounds, no murmurs, rubs or gallops Pulmonary/Chest: effort normal and breath sounds normal. Abdominal: non-tender, non-distended Medical Decision-making Assessment and Initial Plan: Samm Garcia is an 77 y.o. male who presents with fever, chills, reduced appetite for 1 day. No other localizing complaints. Normal exam and vitals. Suspect viral syndrome. Plan swabs, labs. Differential Diagnosis includes but is not limited to: viral syndrome, metabolic derangement Workup Results and Data Review: Labs: Admission on 07/25/2023 Component Date Value SARS-COV-2, PCR 07/25/2023 Negative Flu A, PCR 07/25/2023 Negative Flu B, PCR 07/25/2023 Negative White Blood Cells 07/25/2023 7.6 RBC 07/25/2023 3.79 Hgb 07/25/2023 11.4 (L) Hematocrit 07/25/2023 33.7 (L) MCV 07/25/2023 88.9 MCH 07/25/2023 30.1 MCHC 07/25/2023 33.8 RDW-CV 07/25/2023 14.9 (H) Platelets 07/25/2023 163 Neutrophil % 07/25/2023 54.3 Absolute Neutrophil 07/25/2023 4.2 Lymphocyte % 07/25/2023 40.4 Absolute Lymph 07/25/2023 3.1 Monocytes % 07/25/2023 4.2 Absolute [place] 07/25/2023 0.3 Eosinophil % 07/25/2023 0.8 Absolute Eosinophil 07/25/2023 0.1 Basophil % 07/25/2023 0.3 Absolute Basophil 07/25/2023 0.0 Immature Granulocytes % 07/25/2023 0.0 Absolute Immature Granul* 07/25/2023 0.0 Sodium 07/25/2023 134 (L) Potassium 07/25/2023 3.8 Chloride 07/25/2023 103 CO2 07/25/2023 22 Glucose 07/25/2023 113 (H) BUN 07/25/2023 24 Creatinine 07/25/2023 1.08 Calcium 07/25/2023 9.0 EGFR 07/25/2023 70.2 Anion Gap 07/25/2023 9 Lipase 07/25/2023 78 Total Protein 07/25/2023 7.0 Albumin 07/25/2023 4.5 Alk Phos 07/25/2023 58 ALT 07/25/2023 26 AST 07/25/2023 25 Total Bilirubin 07/25/2023 1.0 Bilirubin, Direct 07/25/2023 0.1 Color 07/25/2023 Yellow Appearance Urine 07/25/2023 Clear Specific [place], Urine 07/25/2023 1.020 pH, Urine 07/25/2023 6.5 Protein, Ur 07/25/2023 Trace (A) Glucose-Urine 07/25/2023 Negative Ketones 07/25/2023 Negative Occult Bld 07/25/2023 Negative Urobilinogen, UA 07/25/2023 <2.0 Leukoesterase 07/25/2023 Negative Nitrites 07/25/2023 Negative Bilirubin, Urine 07/25/2023 Negative Imaging: XR Chest 1 View Final Result No acute heart or lung disease identified. ECG: None ED Course: Based on my clinical evaluation, the patient is hemodynamically stable and is well appearing. I have considered the diagnosis of surgical or severe medical pathology, but at the present time, the likelihood for these is below the threshold for further testing in the emergency department. I did explain that although there is no evidence for any underlying acute life-threatening pathology at this time, early in the process of an illness the initial workup can be falsely negative/reassuring. I made a considered decision regarding hospitalization after review of the clinical data and discussion with the patient, and at this point patient will be discharged to follow-up as instructed in their discharge instructions. Strict return precautions were given to the patient. Reasons to return to the ED, potential complications, expected course of the patient's condition, and recommended treatments were discussed with the patient. The patient was also instructed to follow up with their primary care physician and/or any appropriate specialists. The patient expressed understanding and agreement, and was discharged in stable condition. Impression: 1. Viral syndrome Disposition: Discharge home Signed, Juan Daniel Dockery MD Emergency Medicine and Internal Medicine Pertinent chart review was performed including recent visits, laboratory testing, procedures, and imaging if applicable. Any interpretation of radiology tests by me is preliminary in nature in order to assess for immediately dangerous pathology in need of urgent or emergent intervention. Unless explicitly documented otherwise, final radiology reads guide the ultimate treatment plan including disposition. Nursing documentation of past medical history, surgical history, family history, and social history and medications reviewed and are accurate to the best of my knowledge except as detailed in the body of this note. Some or all of this note was created using voice recognition software. Efforts were made to proofread but errors in grammar, syntax, punctuation as well as transcriptional errors may persist. Complexity of Medical Decision Making Problems Addressed: Viral syndrome: acute illness or injury Amount and/or Complexity of Data Reviewed Labs: ordered. Decision-making details documented in ED Course. Radiology: ordered. Decision-making details documented in ED Course. Risk Prescription drug management. Tashi Dockery MD 07/25/23 1349 [facility] Emergency department Note 07-25-2023 Tashi Dockery MD - 07/25/2023 1:18 PM Yoanna Mejias APRN CNP - 07/25/2023 12:21 PM Hazel Seaman RN - 07/25/2023 11:33 AM EDT Note Date & Type Note Facility 07-25-2023 Emergency department Note I personally saw and examined this patient. I supervised the care and treatment of this patient. I formulated the medical decision making plan verbally with the midlevel, OIL EXPERT, or PA, which led to the disposition, treatment, discharge, or admission of this patient. I personally reviewed all laboratory and imaging results and discussed them with the midlevel provider. The orders entered are the direct result of that medical decision making and treatment plan formulated and discussed with the advanced practice provider. I did discuss with the patient the plan of care and the results of the testing, as well as strict return precautions in the case of discharge. Please see KHUSHBU's note for further details regarding this case. Nursing documentation of past medical history, surgical history, family history, and social history and medications were reviewed and I agree except as noted in the body of this note. HPI: Pt is a 77 y.o. male seen for fever and chills and reduced appetite. No other complaints. ROS: All other systems reviewed and are negative except as described above. ED Triage Vitals [07/25/23 1136] BP 141/69 Heart Rate 94 Resp 18 Temp 99.8 F (37.7 C) Temp src Oral SpO2 96 % Weight 190 lb (86.2 kg) Height 5' 10 (1.778 m) BMI (Calculated) 27.26 Physical Exam Constitutional: well-developed and well-nourished. No distress. Cardiovascular: regular rhythm and normal heart sounds, no murmurs, rubs or gallops Pulmonary/Chest: effort normal and breath sounds normal. Abdominal: non-tender, non-distended Medical Decision-making Assessment and Initial Plan: Samm Garcia is an 77 y.o. male who presents with fever, chills, reduced appetite for 1 day. No other localizing complaints. Normal exam and vitals. Suspect viral syndrome. Plan swabs, labs. Differential Diagnosis includes but is not limited to: viral syndrome, metabolic derangement Workup Results and Data Review: Labs: Admission on 07/25/2023 Component Date Value SARS-COV-2, PCR 07/25/2023 Negative Flu A, PCR 07/25/2023 Negative Flu B, PCR 07/25/2023 Negative White Blood Cells 07/25/2023 7.6 RBC 07/25/2023 3.79 Hgb 07/25/2023 11.4 (L) Hematocrit 07/25/2023 33.7 (L) MCV 07/25/2023 88.9 MCH 07/25/2023 30.1 MCHC 07/25/2023 33.8 RDW-CV 07/25/2023 14.9 (H) Platelets 07/25/2023 163 Neutrophil % 07/25/2023 54.3 Absolute Neutrophil 07/25/2023 4.2 Lymphocyte % 07/25/2023 40.4 Absolute Lymph 07/25/2023 3.1 Monocytes % 07/25/2023 4.2 Absolute [place] 07/25/2023 0.3 Eosinophil % 07/25/2023 0.8 Absolute Eosinophil 07/25/2023 0.1 Basophil % 07/25/2023 0.3 Absolute Basophil 07/25/2023 0.0 Immature Granulocytes % 07/25/2023 0.0 Absolute Immature Granul* 07/25/2023 0.0 Sodium 07/25/2023 134 (L) Potassium 07/25/2023 3.8 Chloride 07/25/2023 103 CO2 07/25/2023 22 Glucose 07/25/2023 113 (H) BUN 07/25/2023 24 Creatinine 07/25/2023 1.08 Calcium 07/25/2023 9.0 EGFR 07/25/2023 70.2 Anion Gap 07/25/2023 9 Lipase 07/25/2023 78 Total Protein 07/25/2023 7.0 Albumin 07/25/2023 4.5 Alk Phos 07/25/2023 58 ALT 07/25/2023 26 AST 07/25/2023 25 Total Bilirubin 07/25/2023 1.0 Bilirubin, Direct 07/25/2023 0.1 Color 07/25/2023 Yellow Appearance Urine 07/25/2023 Clear Specific [place], Urine 07/25/2023 1.020 pH, Urine 07/25/2023 6.5 Protein, Ur 07/25/2023 Trace (A) Glucose-Urine 07/25/2023 Negative Ketones 07/25/2023 Negative Occult Bld 07/25/2023 Negative Urobilinogen, UA 07/25/2023 <2.0 Leukoesterase 07/25/2023 Negative Nitrites 07/25/2023 Negative Bilirubin, Urine 07/25/2023 Negative Imaging: XR Chest 1 View Final Result No acute heart or lung disease identified. ECG: None ED Course: Based on my clinical evaluation, the patient is hemodynamically stable and is well appearing. I have considered the diagnosis of surgical or severe medical pathology, but at the present time, the likelihood for these is below the threshold for further testing in the emergency department. I did explain that although there is no evidence for any underlying acute life-threatening pathology at this time, early in the process of an illness the initial workup can be falsely negative/reassuring. I made a considered decision regarding hospitalization after review of the clinical data and discussion with the patient, and at this point patient will be discharged to follow-up as instructed in their discharge instructions. Strict return precautions were given to the patient. Reasons to return to the ED, potential complications, expected course of the patient's condition, and recommended treatments were discussed with the patient. The patient was also instructed to follow up with their primary care physician and/or any appropriate specialists. The patient expressed understanding and agreement, and was discharged in stable condition. Impression: 1. Viral syndrome Disposition: Discharge home Signed, Juan Daniel Dockery MD Emergency Medicine and Internal Medicine Pertinent chart review was performed including recent visits, laboratory testing, procedures, and imaging if applicable. Any interpretation of radiology tests by me is preliminary in nature in order to assess for immediately dangerous pathology in need of urgent or emergent intervention. Unless explicitly documented otherwise, final radiology reads guide the ultimate treatment plan including disposition. Nursing documentation of past medical history, surgical history, family history, and social history and medications reviewed and are accurate to the best of my knowledge except as detailed in the body of this note. Some or all of this note was created using voice recognition software. Efforts were made to proofread but errors in grammar, syntax, punctuation as well as transcriptional errors may persist. Complexity of Medical Decision Making Problems Addressed: Viral syndrome: acute illness or injury Amount and/or Complexity of Data Reviewed Labs: ordered. Decision-making details documented in ED Course. Radiology: ordered. Decision-making details documented in ED Course. Risk Prescription drug management. Tashi Dockery MD 07/25/23 1344 ED Diagnosis and Summary 1. Viral syndrome ED Summary Work up in the ED negative. Patient will be discharged home, to take ibuprofen or tylenol for fever, aches. Follow up with your primary care provider, return to the ED as needed for worsening symptoms or additional concerns. Script for zofran sent to pharmacy on file. History Chief Complaint Patient presents with Fever Fatigue Patient's medications and allergies were reviewed and updated as appropriate. Patient's medications, allergies, past medical, surgical, social and family histories were reviewed and updated as appropriate. Past Medical History: Diagnosis Date Hyperlipidemia Hypertension Patient Active Problem List Diagnosis Date Noted Hyperlipidemia 05/11/2015 Past Surgical History: Procedure Laterality Date FOOT SURGERY Family History Problem Relation Age of Onset COPD Mother Stroke Father High blood pressure Sister Social History Socioeconomic History Marital status: Tobacco Use Smoking status: Former Substance and Sexual Activity Alcohol use: Yes Comment: occ No current facility-administered medications for this encounter. Current Outpatient Medications Medication Sig Dispense Refill amLODIPine (NORVASC) 5 MG tablet Take 1 tablet by mouth daily. Info provided by patient Ascorbic Acid (VITAMIN C) 500 MG tablet Take 1 tablet by mouth daily. B Complex Vitamins (B COMPLEX PO) Take by mouth. (Patient not taking: Reported on 06/05/2023) clopidogrel (PLAVIX) 75 MG tablet Take 1 tablet by mouth daily. Info provided by patient HYDROCHLOROTHIAZIDE PO Take 25 mg by mouth. lovastatin (ALTOPREV) 40 MG 24 hr tablet Take by mouth nightly. Multiple Vitamins-Minerals (MULTIVITAMIN PO) Take by mouth. NIFEdipine (ADALAT CC) 30 MG 24 hr tablet Take 1 tablet by mouth daily. olmesartan (BENICAR) 40 MG tablet Take 1 tablet by mouth daily. Provided by patient predniSONE (DELTASONE) 10 MG tablet First 7 days take 6 pills. Second week take 4 pills. Third week take 2 pills. (Patient not taking: No sig reported) 85 tablet 0 No current facility-administered medications on file prior to encounter. Current Outpatient Medications on File Prior to Encounter Medication Sig Dispense Refill amLODIPine (NORVASC) 5 MG tablet Take 1 tablet by mouth daily. Info provided by patient Ascorbic Acid (VITAMIN C) 500 MG tablet Take 1 tablet by mouth daily. B Complex Vitamins (B COMPLEX PO) Take by mouth. (Patient not taking: Reported on 06/05/2023) clopidogrel (PLAVIX) 75 MG tablet Take 1 tablet by mouth daily. Info provided by patient HYDROCHLOROTHIAZIDE PO Take 25 mg by mouth. lovastatin (ALTOPREV) 40 MG 24 hr tablet Take by mouth nightly. Multiple Vitamins-Minerals (MULTIVITAMIN PO) Take by mouth. NIFEdipine (ADALAT CC) 30 MG 24 hr tablet Take 1 tablet by mouth daily. olmesartan (BENICAR) 40 MG tablet Take 1 tablet by mouth daily. Provided by patient predniSONE (DELTASONE) 10 MG tablet First 7 days take 6 pills. Second week take 4 pills. Third week take 2 pills. (Patient not taking: No sig reported) 85 tablet 0 Outpatient Medications Marked as Taking for the 07/25/23 encounter (Hospital Encounter) Medication Sig Dispense Refill amLODIPine (NORVASC) 5 MG tablet Take 1 tablet by mouth daily. Info provided by patient Ascorbic Acid (VITAMIN C) 500 MG tablet Take 1 tablet by mouth daily. clopidogrel (PLAVIX) 75 MG tablet Take 1 tablet by mouth daily. Info provided by patient HYDROCHLOROTHIAZIDE PO Take 25 mg by mouth. lovastatin (ALTOPREV) 40 MG 24 hr tablet Take by mouth nightly. Multiple Vitamins-Minerals (MULTIVITAMIN PO) Take by mouth. NIFEdipine (ADALAT CC) 30 MG 24 hr tablet Take 1 tablet by mouth daily. olmesartan (BENICAR) 40 MG tablet Take 1 tablet by mouth daily. Provided by patient No Known Allergies 77 y/o male patient presents to ED ambulatory for evaluation of fatigue, fever and not feeling well. States he woke up this morning and felt lethargic and nauseated. Reports that he had a fever this morning and his gave him two regular tylenol for same. He was shivering and that is what prompted the visit. He denies pain, denies CP, SOB, Cough, abdominal pain or any additional concerns. He reports he is on a 14 day heart monitor for palpitations. He denies any additional concerns at this time. 2 weeks ago had a similar episode with a temp of 103. Review of Systems Constitutional: Positive for appetite change, chills, fatigue and fever. HENT: Negative. Respiratory: Negative for cough and shortness of breath. Cardiovascular: Negative for chest pain and leg swelling. Gastrointestinal: Positive for nausea. Negative for abdominal pain, diarrhea and vomiting. Genitourinary: Negative. All other systems reviewed and are negative. I have reviewed ROS, [facility] and the nurses notes and I agree with them unless otherwise noted Physical Exam ED Triage Vitals [07/25/23 1136] BP 141/69 Heart Rate 94 Resp 18 Temp 99.8 F (37.7 C) Temp src Oral SpO2 96 % Weight 190 lb (86.2 kg) Height 5' 10 (1.778 m) BMI (Calculated) 27.26 Physical Exam Vitals and nursing note reviewed. Constitutional: General: He is not in acute distress. Appearance: Normal appearance. HENT: Head: Normocephalic and atraumatic. Right Ear: Tympanic membrane normal. Left Ear: Tympanic membrane normal. Nose: Nose normal. Mouth/Throat: Mouth: Mucous membranes are moist. Pharynx: Oropharynx is clear. Eyes: Conjunctiva/sclera: Conjunctivae normal. Pupils: Pupils are equal, round, and reactive to light. Cardiovascular: Rate and Rhythm: Normal rate and regular rhythm. Heart sounds: Normal heart sounds. Pulmonary: Effort: Pulmonary effort is normal. No respiratory distress. Breath sounds: Normal breath sounds. Abdominal: General: Bowel sounds are normal. There is no distension. Palpations: Abdomen is soft. Tenderness: There is no abdominal tenderness. Skin: General: Skin is warm and dry. Capillary Refill: Capillary refill takes less than 2 seconds. Neurological: Mental Status: He is alert and oriented to person, place, and time. Psychiatric: Mood and Affect: Mood normal. Behavior: Behavior normal. Thought Content: Thought content normal. Judgment: Judgment normal. ED Course DD: Covid, Influenza, Viral Illness, UTI, Pneumonia Procedures Labs Reviewed CBC AND DIFFERENTIAL - Abnormal; Notable for the following components: Result Value Hgb 11.4 (*) Hematocrit 33.7 (*) RDW-CV 14.9 (*) All other components within normal limits BASIC METABOLIC PANEL - Abnormal; Notable for the following components: Sodium 134 (*) Glucose 113 (*) All other components within normal limits URINE CHEM STRIP ONLY - Abnormal; Notable for the following components: Protein, Ur Trace (*) All other components within normal limits SARS-COV-2, PCR - Normal INFLUENZA A&B MOLECULAR - Normal LIPASE - Normal HEPATIC FUNCTION PANEL - Normal RAINBOW DRAW Narrative: The following orders were created for panel order [place] Draw. Procedure Abnormality Status --------- ------ Gold Top[[id number]] In process LIGHT BLUE TOP[[id number]] In process Light Green Top[[id number]] In process Lavender Top[[id number]] In process Dark Green Top[[id number]] In process Please view results for these tests on the individual orders. GOLD TOP LIGHT BLUE TOP LIGHT GREEN TOP LAVENDER TOP DARK GREEN TOP XR Chest 1 View Final Result No acute heart or lung disease identified. Medical Decision Making Discussed with Dr. Dockery, ED attending. Amount and/or Complexity of Data Reviewed Labs: ordered. Decision-making details documented in ED Course. Radiology: ordered. Decision-making details documented in ED Course. Yoanna Fernandez APRN CNP 07/25/23 1328 Yoanna Fernandez APRN CNP 07/25/23 1418 Pt arrives to the ED via private vehicle. Pt ambulates to room without difficulty. Pt states, I got up this morning and I felt lethargic and my stomach has felt a little bit upset. Then later on today I started with the chills and shivering. Pt's states she gave him tylenol about 2 hours ago. Pt's states he had similar episode about 2 weeks ago with a temp of 103. Pt and states the came in because it came back and he was shivering. Pt A&Ox4. RR easy and unlabored. NAD noted. documented in this encounter [facility] Physician Emergency department Note 07-25-2023 Yoanna Fernandez APRN [employer] - 07/25/2023 12:21 PM EDT Note Date & Type Note Facility 07-25-2023 Physician Emergency department Note ED Diagnosis and Summary 1. Viral syndrome ED Summary Work up in the ED negative. Patient will be discharged home, to take ibuprofen or tylenol for fever, aches. Follow up with your primary care provider, return to the ED as needed for worsening symptoms or additional concerns. Script for zofran sent to pharmacy on file. History Chief Complaint Patient presents with Fever Fatigue Patient's medications and allergies were reviewed and updated as appropriate. Patient's medications, allergies, past medical, surgical, social and family histories were reviewed and updated as appropriate. Past Medical History: Diagnosis Date Hyperlipidemia Hypertension Patient Active Problem List Diagnosis Date Noted Hyperlipidemia 05/11/2015 Past Surgical History: Procedure Laterality Date FOOT SURGERY Family History Problem Relation Age of Onset COPD Mother Stroke Father High blood pressure Sister Social History Socioeconomic History Marital status: Tobacco Use Smoking status: Former Substance and Sexual Activity Alcohol use: Yes Comment: occ No current facility-administered medications for this encounter. Current Outpatient Medications Medication Sig Dispense Refill amLODIPine (NORVASC) 5 MG tablet Take 1 tablet by mouth daily. Info provided by patient Ascorbic Acid (VITAMIN C) 500 MG tablet Take 1 tablet by mouth daily. B Complex Vitamins (B COMPLEX PO) Take by mouth. (Patient not taking: Reported on 06/05/2023) clopidogrel (PLAVIX) 75 MG tablet Take 1 tablet by mouth daily. Info provided by patient HYDROCHLOROTHIAZIDE PO Take 25 mg by mouth. lovastatin (ALTOPREV) 40 MG 24 hr tablet Take by mouth nightly. Multiple Vitamins-Minerals (MULTIVITAMIN PO) Take by mouth. NIFEdipine (ADALAT CC) 30 MG 24 hr tablet Take 1 tablet by mouth daily. olmesartan (BENICAR) 40 MG tablet Take 1 tablet by mouth daily. Provided by patient predniSONE (DELTASONE) 10 MG tablet First 7 days take 6 pills. Second week take 4 pills. Third week take 2 pills. (Patient not taking: No sig reported) 85 tablet 0 No current facility-administered medications on file prior to encounter. Current Outpatient Medications on File Prior to Encounter Medication Sig Dispense Refill amLODIPine (NORVASC) 5 MG tablet Take 1 tablet by mouth daily. Info provided by patient Ascorbic Acid (VITAMIN C) 500 MG tablet Take 1 tablet by mouth daily. B Complex Vitamins (B COMPLEX PO) Take by mouth. (Patient not taking: Reported on 06/05/2023) clopidogrel (PLAVIX) 75 MG tablet Take 1 tablet by mouth daily. Info provided by patient HYDROCHLOROTHIAZIDE PO Take 25 mg by mouth. lovastatin (ALTOPREV) 40 MG 24 hr tablet Take by mouth nightly. Multiple Vitamins-Minerals (MULTIVITAMIN PO) Take by mouth. NIFEdipine (ADALAT CC) 30 MG 24 hr tablet Take 1 tablet by mouth daily. olmesartan (BENICAR) 40 MG tablet Take 1 tablet by mouth daily. Provided by patient predniSONE (DELTASONE) 10 MG tablet First 7 days take 6 pills. Second week take 4 pills. Third week take 2 pills. (Patient not taking: No sig reported) 85 tablet 0 Outpatient Medications Marked as Taking for the 07/25/23 encounter (Hospital Encounter) Medication Sig Dispense Refill amLODIPine (NORVASC) 5 MG tablet Take 1 tablet by mouth daily. Info provided by patient Ascorbic Acid (VITAMIN C) 500 MG tablet Take 1 tablet by mouth daily. clopidogrel (PLAVIX) 75 MG tablet Take 1 tablet by mouth daily. Info provided by patient HYDROCHLOROTHIAZIDE PO Take 25 mg by mouth. lovastatin (ALTOPREV) 40 MG 24 hr tablet Take by mouth nightly. Multiple Vitamins-Minerals (MULTIVITAMIN PO) Take by mouth. NIFEdipine (ADALAT CC) 30 MG 24 hr tablet Take 1 tablet by mouth daily. olmesartan (BENICAR) 40 MG tablet Take 1 tablet by mouth daily. Provided by patient No Known Allergies 77 y/o male patient presents to ED ambulatory for evaluation of fatigue, fever and not feeling well. States he woke up this morning and felt lethargic and nauseated. Reports that he had a fever this morning and his gave him two regular tylenol for same. He was shivering and that is what prompted the visit. He denies pain, denies CP, SOB, Cough, abdominal pain or any additional concerns. He reports he is on a 14 day heart monitor for palpitations. He denies any additional concerns at this time. 2 weeks ago had a similar episode with a temp of 103. Review of Systems Constitutional: Positive for appetite change, chills, fatigue and fever. HENT: Negative. Respiratory: Negative for cough and shortness of breath. Cardiovascular: Negative for chest pain and leg swelling. Gastrointestinal: Positive for nausea. Negative for abdominal pain, diarrhea and vomiting. Genitourinary: Negative. All other systems reviewed and are negative. I have reviewed ROS, [facility] and the nurses notes and I agree with them unless otherwise noted Physical Exam ED Triage Vitals [07/25/23 1136] BP 141/69 Heart Rate 94 Resp 18 Temp 99.8 F (37.7 C) Temp src Oral SpO2 96 % Weight 190 lb (86.2 kg) Height 5' 10 (1.778 m) BMI (Calculated) 27.26 Physical Exam Vitals and nursing note reviewed. Constitutional: General: He is not in acute distress. Appearance: Normal appearance. HENT: Head: Normocephalic and atraumatic. Right Ear: Tympanic membrane normal. Left Ear: Tympanic membrane normal. Nose: Nose normal. Mouth/Throat: Mouth: Mucous membranes are moist. Pharynx: Oropharynx is clear. Eyes: Conjunctiva/sclera: Conjunctivae normal. Pupils: Pupils are equal, round, and reactive to light. Cardiovascular: Rate and Rhythm: Normal rate and regular rhythm. Heart sounds: Normal heart sounds. Pulmonary: Effort: Pulmonary effort is normal. No respiratory distress. Breath sounds: Normal breath sounds. Abdominal: General: Bowel sounds are normal. There is no distension. Palpations: Abdomen is soft. Tenderness: There is no abdominal tenderness. Skin: General: Skin is warm and dry. Capillary Refill: Capillary refill takes less than 2 seconds. Neurological: Mental Status: He is alert and oriented to person, place, and time. Psychiatric: Mood and Affect: Mood normal. Behavior: Behavior normal. Thought Content: Thought content normal. Judgment: Judgment normal. ED Course DD: Covid, Influenza, Viral Illness, UTI, Pneumonia Procedures Labs Reviewed CBC AND DIFFERENTIAL - Abnormal; Notable for the following components: Result Value Hgb 11.4 (*) Hematocrit 33.7 (*) RDW-CV 14.9 (*) All other components within normal limits BASIC METABOLIC PANEL - Abnormal; Notable for the following components: Sodium 134 (*) Glucose 113 (*) All other components within normal limits URINE CHEM STRIP ONLY - Abnormal; Notable for the following components: Protein, Ur Trace (*) All other components within normal limits SARS-COV-2, PCR - Normal INFLUENZA A&B MOLECULAR - Normal LIPASE - Normal HEPATIC FUNCTION PANEL - Normal RAINBOW DRAW Narrative: The following orders were created for panel order [place] Draw. Procedure Abnormality Status --------- ------ Gold Top[[id number]] In process LIGHT BLUE TOP[[id number]] In process Light Green Top[[id number]] In process Lavender Top[[id number]] In process Dark Green Top[[id number]] In process Please view results for these tests on the individual orders. GOLD TOP LIGHT BLUE TOP LIGHT GREEN TOP LAVENDER TOP DARK GREEN TOP XR Chest 1 View Final Result No acute heart or lung disease identified. Medical Decision Making Discussed with Dr. Dockery, ED attending. Amount and/or Complexity of Data Reviewed Labs: ordered. Decision-making details documented in ED Course. Radiology: ordered. Decision-making details documented in ED Course. Yoanna Fernandez APRN CNP 07/25/23 1328 Yoanna Fernandez APRN [employer] 07/25/23 1419 [employer] Work Phone: Emergency department Triage note 07-25-2023 Hazel Preston RN - 07/25/2023 11:33 AM EDT Note Date & Type Note Facility 07-25-2023 Emergency department Triage note Pt arrives to the ED via private vehicle. Pt ambulates to room without difficulty. Pt states, I got up this morning and I felt lethargic and my stomach has felt a little bit upset. Then later on today I started with the chills and shivering. Pt's states she gave him tylenol about 2 hours ago. Pt's states he had similar episode about 2 weeks ago with a temp of 103. Pt and states the came in because it came back and he was shivering. Pt A&Ox4. RR easy and unlabored. NAD noted. 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 artery April, acute Pure hypercholesterolemia ac [facility] Work Phone: Evaluation note Note Date & Type Note Facility Evaluation note Diagnosis Viral syndrome- Primary Unspecified viral infection, in conditions classified elsewhere and of unspecified site documented in this encounter [facility] Evaluation note Note Date & Type Note Facility Evaluation note Diagnosis Onset Date Essential hypertension acute Tachycardia acute Atherosclerotic heart diseas e of [place] coronary artery without angina pectoris chronic Dizziness chronic Pure hypercholesterolemia [facility] Work Phone: Evaluation note Note Date & Type Note Facility Evaluation note No assessment information availa vilma [facility] Work Phone: Hospital Discharge instructions Attachments Note Date & Type Note Facility Hospital Discharge instructions The following attachments cannot be sent through Care Everywhere.Viral Infections (Nepalese Urdu)documented in this encounter [facility] Reason for referral (narrative) Note Date & Type Note Facility Reason for referral (narrative) No reason for referral information available [facility] Work Phone: Chief Complaint and Reason for Visit Chief Complaint 9 MO F/U WITH PFM Reason for Visit Atherosclerotic hear t disease of [place] coronary artery without angina pectoris Essential hypertension Presence of stent in coronary artery Pure hypercholesterolemia Chief Complaint 1 y fu PREV PFM PT TACHYCARDIA DIZZINESS Amb Documentation Reason for Visit Essential hypertensi on Tachycardia Atherosclerotic heart disease of [place] coronary artery without angina pectoris Dizziness Pure hypercholesterolemia Chief Complaint Admit Date 1 Y FU July 07, 2025 8: 56am Family History No Family History Records Found Relationship Condition Age at Onset Recorded Date/T ronn mother Hypertension Unknown Heart murmur Unknown father Cerebrovascular accident (CVA) Unknown sister Heart murmur Unknown Advance Directives No Advanced Directives Records Found Advance Directive Response Recorded Date/ Time Advance Directives Yes May 21 8:30am Living Will Yes May 21, 2021 8:30am Power of Concrete Bucket Loader Yes May 21 8:30am Documents on File Type Date Recorded 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 Power of Concrete Bucket Loader 06/05/2023 10:17 AM AMILCAR NG WILL Advance Directive Response Recorded Date/ Time Advance Directives Yes May 12 10:07am Living Will Yes May 12, 2023 10:07am Power of Concrete Bucket Loader Yes May 12 10:07am Advance Directive Response Recorded Date/ Time Advance Directives Yes May 12 10:07am Summary Purpose Additional Source Comments Goals (unrecognized section and content) Goals may be documented in a n alternate sectionGoals may be documented in an alternate sectionGoals may be documented in an alternate section Reason for Visit (unrecogniz ed section and content) Reason Comments Fever Fatigue Care Teams (unrecognized sec tion and content) Team Status: Active Member Role Status Dates Ashely Wilder Family Provider Active No Primary Care Physician Primary Care Provider Active Team Status: Inactive Member Role Status Dates No Primary Care Physician Referring Provider Active Justin Somers OIL EXPERT, OIL EXPERT-C Attending Provider Active Team Status: Active Member Role Status Dates Dr. Christiano De Leon MD Attending Provider Active Team Status: Active Member Role Status Dates No Primary Care Physician Primary Care Provider Active Justin Somers OIL EXPERT, OIL EXPERT-C Attending Provider Active Team Status: Inactive Member Role Status Dates Justin Somers OIL EXPERT, OIL EXPERT-C Attending Provider, Referring Pro vider Active PILO ZAMARRIPA Primary Care Provider Active Team Status: Active Member Role Status Dates No Primary Care Physician Primary Care Provider Active Justin Somers OIL EXPERT, OIL EXPERT-C Attending Provider Active Dr. Micaela Iglesias MD Referring Provider Active Team Status: Active Member Role/Relationship Status Dates No Primary Care Physician Primary Care Provider Active Team Status: Inactive Member Role/Relationship Status Dates No Primary Care Physician Primary Care Provider Active Start: July 07, 2025 End: July 07, 2025 No Primary Care Physician Referring Provider Active Start: July 07, 2025 End: July 07, 2025 Dr. Tashi Hernandez MD Attending Provider Active Start: July 07, 2025 End: July 07, 2025 (unrecognized sect ion and content) No Status Records FoundNo Status Records FoundNo Status Records Found INFORMATION SOURCE (unrecogn ized section and content) DATE CREATED AUTHOR 07/11/2024 [employer] DATE CREATED AUTHOR AUTHOR'S ORGANIZ ATION 06/04/2025 [facility] DATE CREATED AUTHOR AUTHOR'S ORGANIZ ATION 08/05/2025 [facility] FOR RECORDS PERTAINING TO PATIENTS WHO ARE OR HAVE BEEN ENROLLED IN A CHEMICAL DEPENDENCY/SUBSTANCEABUSE PROGRAM, SOME INFORMATION MAY BE OMITTED. This clinical summary was aggregated from multiple sources. Caution should be exercised in using it in the provision of clinical care. This summary normalizes information from multiple sources, and as a consequence, information in this document may materially change the coding, format and clinical context of patient data. In addition, data may be omitted in some cases. CLINICAL DECISIONS SHOULD BE BASED ON THE PRIMARY CLINICAL RECORDS. [employer] [facility]. provides no warranty or guarantee of the accuracy or completeness of information in this document.
== END | disposition home or self-care (01) ==
LOC: CVS 08:00
PROVIDERS: Referring Provider Internal Medicine Cardiovascular Disease; Visit Provider Internal Medicine Cardiovascular Disease
DX: R01.1 Cardiac murmur, unspecified (principal)
CPT/HCPCS: 93306